=== PATIENT | female | born 1940 | race Caucasian/White ===

== ENCOUNTER 2018-03-18 14:54 | Observation (INO) | payer OTHER ==
[2018-03-18 16:07] LABS: Absolute Lymphocytes (CBC) 0.6 K/uL (0.7-4.9); Absolute Monocytes 1.5 K/uL (0.1-1.3); Absolute Neutrophil 3.4 K/uL (1.8-8.0); Basophils % 0.8 % (0-1.3); Eosinophils % 10.2 % (0-4.4); Hematocrit 27.4 % (36.0-45.0); Lymphocytes % 10.2 % (15.3-44.8); MCH 31.8 pg (27.0-35.0); MCV 92.6 fL (80-100); MPV 8.3 fL (7.6-11.3); Monocytes % 24.3 % (3.3-12.3); RBC Red Blood Cell Count 2.96 M/uL (3.86-4.86)
[2018-03-18 16:17] LABS: Albumin 2.6 g/dL (3.4-5.0); Bilirubin Total 0.2 mg/dL (0.2-1.0); Potassium 4.8 mmol/L (3.5-5.1)
[2018-03-18 16:28] VITALS: BMI 21.6
[2018-03-18] MEDS: NA CHLORIDE 0.9% 500 ML IV ONE (17:03)
[2018-03-18] MEDS: D5 0.9 NS 1,000 ML IV SCH (17:03)
[2018-03-18] MEDS: METRONIDAZOLE 500mg IVPB 500 MG/100 ML BAG IV SCH (17:04)
[2018-03-18] MEDS: FERROUS SULFATE 325 MG TAB PO SCH (20:46)
[2018-03-18] MEDS: CIPROFLOXACIN 400 MG/200 ML IVPB IV SCH (20:46)
[2018-03-18 23:12] VITALS: O2SAT 97
[2018-03-19 00:41] LABS: Urine Appearance CLEAR; Urine Bilirubin NEGATIVE (NEG); Urine Blood NEGATIVE (NEG); Urine Color YELLOW; Urine Glucose NEGATIVE (NEG); Urine Protein NEGATIVE (NEG); Urine Specific Gravity 1.015 (1.005-1.030); Urine Urobilinogen 0.2 mg/dL (0.2-1.0)
[2018-03-19 00:45] LABS: Urine Microscopic Reflex ORDER UMIC
[2018-03-19 01:17] LABS: Urine Bacteria <20 /HPF (<20); Urine Culture Reflex Order REFLEXED; Urine RBC <5 /HPF (NONE SEEN)
[2018-03-19] MEDS: METRONIDAZOLE 500mg IVPB 500 MG/100 ML BAG IV SCH ×3 (01:21→16:47)
[2018-03-19] MEDS: D5 0.9 NS 1,000 ML IV SCH ×3 (06:20→21:00)
[2018-03-19 08:38] LABS: Absolute Monocytes 1.6 K/uL (0.1-1.3); Absolute Neutrophil 3.6 K/uL (1.8-8.0); Basophils % 0.5 % (0-1.3); Eosinophils % 3.4 % (0-4.4); Hematocrit 29.1 % (36.0-45.0); Lymphocytes % 15.2 % (15.3-44.8); MCH 30.9 pg (27.0-35.0); MPV 7.5 fL (7.6-11.3)
[2018-03-19 08:53] LABS: Potassium 4.1 mmol/L (3.5-5.1)
[2018-03-19 09:08] LABS: Blood Morphology Comment NOT SEEN (NOT SEEN); Platelet Estimate INCR; Platelets, Giant NOTED; Urine White Blood Cell Casts OK
[2018-03-19 09:09] LABS: Hypochromasia 1+
[2018-03-19] MEDS: CIPROFLOXACIN 400 MG/200 ML IVPB IV SCH ×2 (10:03→21:00)
[2018-03-19] MEDS: FERROUS SULFATE 325 MG TAB PO SCH ×2 (10:04→21:00)
[2018-03-19] MEDS: NA CHLORIDE 0.9% 500 ML IV ONE (12:58)
[2018-03-19] MEDS ORDERED: NA CHLORIDE 0.9% 500 ML IV SCH (13:00)
[2018-03-19] MEDS ORDERED: D5 0.45 NS 1,000 ML IV SCH (13:00)
[2018-03-19] MEDS ORDERED: D5 0.45 NS 500 ML IV SCH (13:00)
[2018-03-19] MEDS ORDERED: NA CHLORIDE 0.9% 500 ML ONE (13:04)
[2018-03-19] MEDS ORDERED: predniSONE 20 MG TAB PO SCH (15:29)
[2018-03-19] MEDS ORDERED: ACETAMINOPHEN 500 MG TAB PO PRN (16:30)
[2018-03-19] MEDS: ENOXAPARIN 30 MG/0.3 ML SQ SCH (16:47)
[2018-03-19] MEDS ORDERED: ENOXAPARIN 30 MG/0.3 ML SQ SCH ×2 (17:00)
[2018-03-19] MEDS: predniSONE 20 MG TAB PO SCH (17:21)
[2018-03-20] MEDS: METRONIDAZOLE 500mg IVPB 500 MG/100 ML BAG IV SCH ×3 (01:00→17:00)
[2018-03-20 04:43] LABS: Absolute Lymphocytes (CBC) 0.3 K/uL (0.7-4.9); Absolute Monocytes 0.2 K/uL (0.1-1.3); Basophils % 0.3 % (0-1.3); Eosinophils % 0.1 % (0-4.4); Hematocrit 24.4 % (36.0-45.0); Lymphocytes % 13.3 % (15.3-44.8); MCV 90.2 fL (80-100); RBC Red Blood Cell Count 2.71 M/uL (3.86-4.86)
[2018-03-20 05:15] LABS: Potassium 4.4 mmol/L (3.5-5.1)
[2018-03-20 05:42] LABS: Blood Morphology Comment NOT SEEN (NOT SEEN); Platelet Estimate INCR; Platelets, Giant NOTED; Urine White Blood Cell Casts OK
[2018-03-20] MEDS ORDERED: ALENDRONATE 70 MG TAB PO SCH (06:30)
[2018-03-20] MEDS: predniSONE 20 MG TAB PO SCH (08:44)
[2018-03-20] MEDS: FERROUS SULFATE 325 MG TAB PO SCH ×2 (08:45→21:18)
[2018-03-20] MEDS: CIPROFLOXACIN 400 MG/200 ML IVPB IV SCH ×2 (10:55→21:22)
[2018-03-20] MEDS: ENOXAPARIN 30 MG/0.3 ML SQ SCH (18:38)
[2018-03-21] MEDS: METRONIDAZOLE 500mg IVPB 500 MG/100 ML BAG IV SCH (00:33)
[2018-03-21 04:57] LABS: Absolute Monocytes 1.3 K/uL (0.1-1.3); Absolute Neutrophil 5.4 K/uL (1.8-8.0); Basophils % 0.1 % (0-1.3); Hematocrit 27.9 % (36.0-45.0); Lymphocytes % 12.8 % (15.3-44.8); MCH 31.6 pg (27.0-35.0); MCV 91.8 fL (80-100); RBC Red Blood Cell Count 3.04 M/uL (3.86-4.86)
[2018-03-21 05:03] LABS: Potassium 3.8 mmol/L (3.5-5.1)
[2018-03-21] MEDS ORDERED: ALENDRONATE 70 MG TAB PO SCH (06:30)
[2018-03-21 08:47] VITALS: TEMP 97.6
[2018-03-21] MEDS ORDERED: CIPROFLOXACIN HCL 500 MG TAB PO SCH (09:00)
[2018-03-21] MEDS: FERROUS SULFATE 325 MG TAB PO SCH (11:16)
[2018-03-21] MEDS: metroNIDAZOLE 500 MG TABLET PO SCH ×2 (11:16→14:22)
[2018-03-21] MEDS: predniSONE 20 MG TAB PO SCH (11:16)
[2018-03-21 12:18] VITALS: BP 90/50
--- NOTE | 2018-03-21 13:55 | PN ---
Date of Progress Note: 03/20/2018 Subjective: The patient feels considerably better today. Symptoms have improved. Her appetite has improved. I feel that she probably ready for discharge in the a.m. Continue on antibiotics and ster oids at home. Vital signs are stable. HR/MODL Voice ID: [id number] Report ID: [id number]
--- NOTE | 2018-03-21 14:55 | PN ---
Date of Progress Note: 03/21/2018 Subjective: The patient both clinically and symptomatically has improved. Blood pressure is still l ow. However, she has continuously run low even without any flares and was recently seen in the offic e with a low blood pressure. Bolusing her did not seem to make any significant difference. Tolerati ng her food. Discussed with Dr. Porter. We will discharge on Flagyl, Cipro p.o. and decreasing do ses of steroids starting at 20. She was discharged to follow up with Dr. Porter in a few days and me as necessary. HR/MODL Voice ID: [id number] Report ID: [id number]
--- NOTE | 2018-03-24 09:40 | HP ---
Date of Admission: 03/18/2018 Entrance Complaint: Diarrhea, anorexia, general malaise. History Of Present Illness: The patient has had a long history of ulcerative colitis with flare-ups, although past 6 months, she has done relatively well. She is seen in the office today with a gastro enterologist who felt she was quite dehydrated and required IV therapy for a flare-up of her ulcerati ve colitis. She was therefore admitted for more aggressive treatment. Past History: As above. The patient has been on numerous medications including the addition of Humi ra, which has been relatively good until recently. The usual progression is anorexia with dehydratio n and sometimes rectal bleeding, this has necessitated blood transfusions in the past as recently as 1 year. Family History: Noncontributory. Social History: Nonsmoker, nondrinker. The patient does have a long history of progressive dementia . However, she has a good corporate strategy analyst in the presence of her . Physical Examination: General: The patient is a rather cachectic, elderly female, responsive with stable vital signs, but no orientation. Head and Neck: Normocephalic. Pupils equal and reactive to light and accommodation. Fundi negative . Trachea midline. Thyroid not palpable. ENT: Negative. Chest: Clear to P and A. Cardiovascular: PMI midclavicular line. Heart sounds normal. Peripheral pulses are present and equ al bilaterally. Abdomen: Minimal tenderness in paraumbilical area. No guarding, rebound, tenderness, or rigidity. Bowel sounds hyperactive. Extremities: Moderately dehydrated. Good tone and movement. Bilateral reflexes physiologic. Rectal: Deferred. Pelvic: Deferred. Impression: Acute flare of ulcerative colitis, marked dehydration, anemia of chronic disease. Plan: The patient will be admitted and placed on IV fluids, IV antibiotics, and IV steroids dependin g on the responsiveness. This can last anywhere from 24 hours to 3 or 4 days. She was seen during h ospital stay with Gastroenterology as well. HR/MODL Voice ID: [id number]
== END 2018-03-21 14:40 | disposition home health service (06) ==
LOC: 4TH 15:07
PROVIDERS: ADMIT Family Medicine; ATTEND Family Medicine
DX: K51.90 Ulcerative colitis, unspecified, without complications (principal); E86.0 Dehydration; D64.9 Anemia, unspecified
CPT/HCPCS: 36415 ×2; 80048 ×3; 80053; 83605; 85025 ×4; 87040 ×2; 87077; 87086; 87088; 87186; 87205; 87493; G0378; G0379; J0744 ×5; J1650 ×2; 81003; 81015; J7512

== ENCOUNTER 2018-03-26 09:04 | Observation (INO) | payer OTHER ==
[2018-03-26] MEDS ORDERED: NA CHLORIDE 0.9% 1,000 ML ONE (09:19)
[2018-03-26 09:45] LABS: Absolute Lymphocytes (CBC) 0.9 K/uL (0.7-4.9); Absolute Monocytes 0.8 K/uL (0.1-1.3); Absolute Neutrophil 10.9 K/uL (1.8-8.0); Basophils % 0.1 % (0-1.3); Eosinophils % 1.1 % (0-4.4); MCH 30.1 pg (27.0-35.0); MCV 91.4 fL (80-100); MPV 7.4 fL (7.6-11.3); Monocytes % 6.1 % (3.3-12.3); RBC Red Blood Cell Count 3.28 M/uL (3.86-4.86)
[2018-03-26 09:54] LABS: Potassium 4.6 mmol/L (3.5-5.1)
--- NOTE | 2018-03-26 09:57 | RAD REPORT ---
EXAM DESCRIPTION: CT - Head C Spine Cap W Shree - 03/26/2018 9:35 am CLINICAL HISTORY: Head and neck injury with chest and abdominal pain status post fall. Head and neck pain . TECHNIQUE: Computed axial tomography of the head and cervical spine was obtained Computed axial tomography of the chest, abdomen and pelvis was obtained. 100 cc Isovue-300 was given intravenously coronal and sagittal reconstruction was performed. All CT scans are performed using dose optimization technique as appropriate and may include automated exposure control or mA/KV adjustment according to patient size. COMPARISON: September 2017 CT abdomen FINDINGS: An intracranial bleed is not seen. The ventricles are normal in caliber. An extra-axial fl uid collection is not noted. A cervical fracture is not seen. No dislocation is seen. A mediastinal hematoma is not noted. A pleural effusion is not present. A lung contusion is not seen. The liver, spleen, pancreas, adrenals, kidneys and bladder appear unremarkable. A gallstone is seen w ithout gallbladder wall thickening. The wall of the left colon appears mildly thickened. IMPRESSION: 1. No acute intracranial abnormality is seen 2. A cervical fracture is not visualized. If the patient continues have symptoms to suggest intracran ial/spinal cord pathology then MRI would be recommended. 3. No traumatic injury involving the chest, abdomen or pelvis is seen. 4. The wall of the left colon appears mildly thickened which may indicate colitis
[2018-03-26 09:59] LABS: Urine White Blood Cell Casts OK
[2018-03-26 10:00] LABS: Blood Morphology Comment NOT SEEN (NOT SEEN); Platelet Estimate INCR
--- NOTE | 2018-03-26 10:26 | EKG ---
Test Date: 2018-03-26 Test Time: 09:14:43 Field Tech: LORETTA MEASUREMENT RESULTS: Intervals: Rate: 79 MI: 118 QRSD: 80 QT: 344 QTc: 394 Ramsey: P: 22 MI: 118 QRS: 48 T: 65 INTERPRETIVE STATEMENTS: Sinus rhythm with occasional premature ventricular complexes Otherwise normal ECG Compared to ECG 03/12/2017 09:34:36 Sinus tachycardia no longer present Electronically Signed On 03-26-18 10:25:45 CDT by Julio Carrillo
--- NOTE | 2018-03-26 10:36 | RAD REPORT ---
EXAM DESCRIPTION: RAD - Hip Right 2 View - 03/26/2018 9:57 am CLINICAL HISTORY: Right hip pain status post fall FINDINGS: No fracture or dislocation is seen. The bones are osteoporotic. Moderate osteoarthritis involves the right hip. If patient continues ojeda ve symptoms to suggest an occult fracture MRI would be recommended
--- NOTE | 2018-03-26 10:47 | RAD REPORT ---
EXAM DESCRIPTION: RAD - Femur Right - 03/26/2018 9:57 am CLINICAL HISTORY: Right leg pain FINDINGS: No fracture is seen. Bones are osteoporotic
--- NOTE | 2018-03-26 12:26 | ER ---
Nurse's Notes [facility] Name: Sarika Gasca Age: 77 yrs Sex: Female : 1940 Arrival Date: 03/26/2018 Time: 09:08 Bed 8 Private MD: Diagnosis: Other slipping, tripping and stumbling and falls;Superficial injury of head;Laceration without foreign body of scalp;Hypotension;Orthostatic hypotension;Weakness Presentation: 03/26 09:09 Presenting complaint: EMS states: PT was in the kitchen and her heard her fall, la1 when he went in the kitchen she was awake and when he tried to help her up she passed out. BP on scene was 90/40. Transition of care: patient was not received from another setting of care. Onset of symptoms was March 26, 2018. Risk Assessment: Do you want to hurt yourself or someone else? Patient reports no desire to harm self or others. Initial Sepsis Screen: Does the patient meet any 2 criteria? Systolic BP < 90 mmHg. Does the patient have a suspected source of infection? No. Patient's initial sepsis screen is negative. Care prior to arrival: Cervical collar in place. Placed on backboard. 09:09 Method Of Arrival: EMS: [facility] la1 09:09 Acuity: ARIC 2 la1 Historical: - Allergies: 09:11 METRONIDAZOLE; la1 - Home Meds: 13:08 alendronate 70 mg Oral tab 1 tab once wkly [Active]; Delzicol 400 mg Oral cpDR 2 caps 3 sg times per day for ulcerative colitis [Active]; ferrous sulfate 325 mg (65 mg iron) Oral tab daily [Active]; Protonix 40 mg Oral TbEC 1 tab once daily [Active]; Remicade 100 mg intravenous solr for ulcerative colitis [Active]; rivastigmine 9.5 mg/24 hr transdermal pt24 1 patch once daily [Active]; Vancocin 250 mg Oral cap 1 cap every 8 hours [Active]; - PMHx: 09:11 Anemia; Dementia; Osteoporosis; Rectal bleed; ulcerative colitis; la1 - PSHx: 13:08 r wirst surgery; fractured pelvic repair; sg - Immunization history:: Adult Immunizations up to date. - Social history:: Smoking status: unknown. - Ebola Screening: : No symptoms or risks identified at this time. Screenin:30 Abuse screen: Denies threats or abuse. Denies injuries from another. Nutritional sg screening: No deficits noted. Tuberculosis screening: No symptoms or risk factors identified. Never had TB. Fall Risk None identified. Primary Survey: 09:15 A: Airway: patent, Oxygen via nasal cannula at 2 liters per minute. Oral cavity: clear, sg Trachea midline. Breathing/Chest: Respiratory pattern: tachypnea, Respiratory effort: spontaneous, unlabored, Breath sounds: clear, Chest inspection: symmetrical rise and fall of the chest. Circulation: Heart tones present. Pulses: palpable right radial artery, right posterior tibial artery, left radial artery and left posterior tibial artery. Skin temperature: warm. Disability Alert. 09:30 Reassessment Airway Airway Patent Oxygen Nasal cannula Oral cavity Clear sg Breathing/Chest Respiratory pattern Regular Respiratory effort Spontaneous Unlabored Breath sounds Clear Chest inspection Symmetrical Circulation Heart tones Present Pulses Palpable Color Pale Temperature Dry Cool Disability Alert. Secondary Survey: 09:15 HEENT: Head No injury/deformity Face No injury/deformity Eyes: No injury or deformity sg noted. Ears: clear Nose: clear Throat: No injury or deformity noted. is clear. Gastrointestinal: Abdomen is soft, non-distended, Bowel sounds present in all quadrants. Palpation No deficit noted. : No signs and/or symptoms were reported regarding the genitourinary system. Musculoskeletal: Circulation, motion, and sensation intact. Range of motion: intact in all extremities, Swelling absent Reports pain in neck and back and posterior chest and back of head c-collar remains in place, was applied APPEALS OFFICER by EMS. Assessment: 09:12 Reassessment: Pt cleared off of backboard by ERP. la1 09:30 General: Appears uncomfortable, slender, well groomed, well developed, well nourished, sg Behavior is calm, cooperative, appropriate for age. Pain: Complains of pain in back of head, posterior chest, back and neck Quality of pain is described as aching, tender. Neuro: Level of Consciousness is awake, obeys commands, Oriented to person, situation, Speech is normal, Facial symmetry appears normal. Cardiovascular: Heart tones S1 S2 present Capillary refill is sluggish in bilateral fingers toes Chest pain is denied. Respiratory: Airway is patent Respiratory effort is even, unlabored, Respiratory pattern is regular, symmetrical. GI: No signs and/or symptoms were reported involving the gastrointestinal system. Bowel sounds present X 4 quads. hyperactive in right lower quadrant and left lower quadrant. : No signs and/or symptoms were reported regarding the genitourinary system. EENT: No signs and/or symptoms were reported regarding the EENT system. Derm: Skin is intact, is fragile, is thin, Skin is dry, Skin is pale, Skin temperature is cold Bruising that is dark purple, on dorsal aspect of left forearm. Musculoskeletal: Circulation, motion, and sensation intact. Range of motion: intact in all extremities, Swelling absent a c-collar remains in place, was applied APPEALS OFFICER. 09:38 Reassessment: pt in CT at this time, xray ordered as well pt family remains in exam sg room. 10:25 Injury Description: Laceration sustained to occipital area is 0.5 to 2.5 cm long, not sg bleeding, was sustained 30-60 minutes ago. a small amount of bleeding noted at this time. 10:28 Reassessment: CT report noted, notified, pt c-collar removed, pt reports sg feeling better. 11:21 Reassessment: at bedside evaluating pt. sg 11:41 Reassessment: Patient appears in no apparent distress at this time. pt ambulatory sg steady gait, reports feeling dizzy while standing, pt assisted back to bed, BP reading 60/40, notified. 12:40 Reassessment: Patient appears in no apparent distress at this time. Patient and/or sg family updated on plan of care and expected duration. Pain level reassessed. awaiting admission orders at this time Patient states feeling better. Vital Signs: 09:12 BP 79 / 59; Pulse 85; Resp 16; Temp 97.1; Pulse Ox 98% on R/A; la1 10:05 BP 97 / 62; Pulse 77; Resp 20 S; Pulse Ox 100% on 2 lpm NC; Weight 63.5 kg; Pain 6/10; sg 10:52 BP 90 / 59; Pulse 75; Resp 19 S; Pulse Ox 99% on R/A; Pain 3/10; sg 11:35 BP 92 / 61 Sitting; Pulse 78 MON; Resp 19 S; Pulse Ox 100% on R/A; sg 11:40 BP 60 / 40 RA Standing (auto/reg); Pulse 97; Resp 19 S; Pulse Ox 99% on R/A; Pain 3/10; sg 12:30 BP 94 / 60; Pulse 79 MON; Resp 18; Pulse Ox 99% on R/A; sg 14:30 BP 92 / 61; Pulse 77 MON; Resp 20; Temp 97.1; Pulse Ox 99% on R/A; Pain 0/10; sg Luther Coma Score: 09:15 Eye Response: spontaneous(4). Verbal Response: oriented(5). Motor Response: obeys sg commands(6). Total: 15. 10:05 Eye Response: spontaneous(4). Verbal Response: oriented(5). Motor Response: obeys sg commands(6). Total: 15. Trauma Score (Adult): 09:15 Eye Response: spontaneous(1); Verbal Response: oriented(1); Motor Response: obeys sg commands(2); Systolic BP: 76 to 89 mm Hg(3); Respiratory Rate: 10 to 29 per min(4); Roxana Score: 15; Trauma Score: 11 10:05 Eye Response: spontaneous(1); Verbal Response: oriented(1); Motor Response: obeys sg commands(2); Systolic BP: > 89 mm Hg(4); Respiratory Rate: 10 to 29 per min(4); Roxana Score: 15; Trauma Score: 12 ED Course: 09:08 Patient arrived in ED. la1 09:08 Carlito Nieves MD is Attending Physician. kdr 09:11 Triage completed. la1 09:12 Arm band placed on right wrist. EKG completed in triage. Results shown to MD. la1 09:30 Initial lab(s) drawn, by la, sent to lab. T\T\S collected, blood band applied to patient. sg Inserted saline lock: 20 gauge in left antecubital area, using aseptic technique. Blood collected. Oxygen administration via nasal cannula \T\ 2L/min Response to oxygen therapy: pt reports feels better, RR noted to be 22 bpm at this time. 09:[address] via stretcher. [email or web address] 09:33 Shiva Polanco, RN is Primary Nurse. sg 09:36 CT Traumagram (Head C Spine CAP W Con) In Process Unspecified. EDMS 09:57 Hip Right 2 View XRAY In Process Unspecified. EDMS 09:57 Femur Right XRAY In Process Unspecified. EDMS 09:57 X-ray completed. Patient tolerated procedure well. Patient moved back from radiology. jb2 11:00 Wound care: to laceration located on occipital area was cleaned with Hibiclens, dressed sg with 4X4s, Patient tolerated well. awaiting to evaluate pt and determine if closure is needed. 12:15 Inserted saline lock: 22 gauge in right hand, using aseptic technique. IV discontinued, em1 intact, bleeding controlled, No redness/swelling at site. Pressure dressing applied. 12:20 Nathaniel Del Valle MD is Hospitalizing Provider. kdr Administered Medications: 10:05 Drug: NS 0.9% 500 ml Route: IV; Rate: bolus; Site: left antecubital; sg 10:40 Follow up: Response: No adverse reaction; IV Status: Completed infusion; IV Intake: sg 500ml 11:53 Drug: NS 0.9% 500 ml Route: IV; Rate: bolus; Site: left antecubital; sg Intake: 10:40 IV: 500ml; Total: 500ml. sg 14:30 IV: 1000ml (IV Fluid); Total: 1500ml. sg Output: 14:30 Urine: 400ml (Voided); Total: 400ml. sg Outcome: 12:26 Decision to Hospitalize by Provider. kdr 14:46 Patient left the ED. sg Signatures: Dispatcher [employer] EDMS Shiva Polanco, RN Carlito Fermin MD MD kdr Buechter, Jesse jb2 Martinez, Eric em1 Dawood Wall RN RN laGaby Boswell6
--- NOTE | 2018-03-26 12:27 | EDPHYS ---
Physician Documentation [facility] Name: Sarika Gasca Age: 77 yrs Sex: Female : 1940 Arrival Date: 03/26/2018 Time: 09:08 Bed 8 Private MD: ED Physician Carlito Nieves HPI: 03/26 16:51 This 77 yrs old Female presents to ER via EMS with complaints of Fall Injury. kdr 16:51 Details of fall: The patient fell from an upright position, while standing. Onset: The kdr symptoms/episode began/occurred suddenly, just prior to arrival. Associated injuries: The patient sustained injury to the head, contusion, pain, swelling, tenderness, The patient was reported to have been standing in the kitchen at the sink when she apparently collapsed on the floor. This was unwitnessed however the was nearby and came into the kitchen immediately and found her on the floor. He reports that she was awake but when he tried to sit her up, she passed out. EMS was called and she was bought to the ED without further complications.. Severity of symptoms: At their worst the symptoms were mild, in the emergency department the symptoms are unchanged. The patient has not experienced similar symptoms in the past. The patient has not recently seen a physician. Historical: - Allergies: 09:11 METRONIDAZOLE; la1 - Home Meds: 13:08 alendronate 70 mg Oral tab 1 tab once wkly [Active]; Delzicol 400 mg Oral cpDR 2 caps 3 sg times per day for ulcerative colitis [Active]; ferrous sulfate 325 mg (65 mg iron) Oral tab daily [Active]; Protonix 40 mg Oral TbEC 1 tab once daily [Active]; Remicade 100 mg intravenous solr for ulcerative colitis [Active]; rivastigmine 9.5 mg/24 hr transdermal pt24 1 patch once daily [Active]; Vancocin 250 mg Oral cap 1 cap every 8 hours [Active]; - PMHx: 09:11 Anemia; Dementia; Osteoporosis; Rectal bleed; ulcerative colitis; la1 - PSHx: 13:08 r wirst surgery; fractured pelvic repair; sg - Immunization history:: Adult Immunizations up to date. - Social history:: Smoking status: unknown. - Ebola Screening: : No symptoms or risks identified at this time. ROS: 16:51 Constitutional: Negative for fever, chills, and weight loss, Eyes: Negative for injury, kdr pain, redness, and discharge, Neck: Negative for injury, pain, and swelling, Cardiovascular: Negative for chest pain, palpitations, and edema, Respiratory: Negative for shortness of breath, cough, wheezing, and pleuritic chest pain, Abdomen/GI: Negative for abdominal pain, nausea, vomiting, diarrhea, and constipation, Back: Negative for injury and pain, : Negative for injury, bleeding, discharge, and swelling, MS/Extremity: Negative for injury and deformity, Skin: Negative for injury, rash, and discoloration, Psych: Negative for depression, anxiety, suicide ideation, homicidal ideation, and hallucinations, Allergy/Immunology: Negative for hives, rash, and allergies, Endocrine: Negative for neck swelling, polydipsia, polyuria, polyphagia, and marked weight changes, Hematologic/Lymphatic: Negative for swollen nodes, abnormal bleeding, and unusual bruising. 16:51 Neuro: Positive for headache, weakness, Negative for altered mental status, dizziness, gait disturbance, hearing loss, loss of consciousness, numbness, seizure activity, speech changes, syncope, near syncope, tingling, tinnitus, tremor, visual changes, acute changes. 16:51 Neuro: Positive for Contusion to eocciput. kdr Exam: 16:51 Constitutional: This is a well developed, well nourished patient who is awake, alert, kdr and in no acute distress. Head/Face: Normocephalic, atraumatic ecept for 1.5 cm occiputal laceration. Eyes: Pupils equal round and reactive to light, extra-ocular motions intact. Lids and lashes normal. Conjunctiva and sclera are non-icteric and not injected. Cornea within normal limits. Periorbital areas with no swelling, redness, or edema. Neck: Trachea midline, no thyromegaly or masses palpated, and no cervical lymphadenopathy. Supple, full range of motion without nuchal rigidity, or vertebral point tenderness. No Meningismus. Chest/axilla: Normal chest wall appearance and motion. Nontender with no deformity. No lesions are appreciated. Cardiovascular: Regular rate and rhythm with a normal S1 and S2. No gallops, murmurs, or rubs. Normal PMI, no JVD. No pulse deficits. Respiratory: Lungs have equal breath sounds bilaterally, clear to auscultation and percussion. No rales, rhonchi or wheezes noted. No increased work of breathing, no retractions or nasal flaring. Abdomen/GI: Soft, non-tender, with normal bowel sounds. No distension or tympany. No guarding or rebound. No evidence of tenderness throughout. Back: No spinal tenderness. No costovertebral tenderness. Full range of motion. MS/ Extremity: Pulses equal, no cyanosis. Neurovascular intact. Full, normal range of motion. Neuro: Awake and alert, GCS 15, oriented to person, place, time, and situation. Cranial nerves II-XII grossly intact. Motor strength 5/5 in all extremities. Sensory grossly intact. Cerebellar exam normal. Normal gait. Psych: Awake, alert, with orientation to person, place and time. Behavior, mood, and affect are within normal limits. Vital Signs: 09:12 BP 79 / 59; Pulse 85; Resp 16; Temp 97.1; Pulse Ox 98% on R/A; la1 10:05 BP 97 / 62; Pulse 77; Resp 20 S; Pulse Ox 100% on 2 lpm NC; Weight 63.5 kg; Pain 6/10; sg 10:52 BP 90 / 59; Pulse 75; Resp 19 S; Pulse Ox 99% on R/A; Pain 3/10; sg 11:35 BP 92 / 61 Sitting; Pulse 78 MON; Resp 19 S; Pulse Ox 100% on R/A; sg 11:40 BP 60 / 40 RA Standing (auto/reg); Pulse 97; Resp 19 S; Pulse Ox 99% on R/A; Pain 3/10; sg 12:30 BP 94 / 60; Pulse 79 MON; Resp 18; Pulse Ox 99% on R/A; sg 14:30 BP 92 / 61; Pulse 77 MON; Resp 20; Temp 97.1; Pulse Ox 99% on R/A; Pain 0/10; sg Luther Coma Score: 09:15 Eye Response: spontaneous(4). Verbal Response: oriented(5). Motor Response: obeys sg commands(6). Total: 15. 10:05 Eye Response: spontaneous(4). Verbal Response: oriented(5). Motor Response: obeys sg commands(6). Total: 15. Trauma Score (Adult): 09:15 Eye Response: spontaneous(1); Verbal Response: oriented(1); Motor Response: obeys sg commands(2); Systolic BP: 76 to 89 mm Hg(3); Respiratory Rate: 10 to 29 per min(4); Luther Score: 15; Trauma Score: 11 10:05 Eye Response: spontaneous(1); Verbal Response: oriented(1); Motor Response: obeys sg commands(2); Systolic BP: > 89 mm Hg(4); Respiratory Rate: 10 to 29 per min(4); Luther Score: 15; Trauma Score: 12 Laceration: 16:51 Wound Repair of 1.5cm ( 0.6in ) subcutaneous laceration to scalp. Distal kdr neuro/vascular/tendon intact. 16:51 Wound Repair of 1.5cm ( 0.6in ) subcutaneous laceration. Distal neuro/vascular/tendon kdr intact. Anesthesia: None with 1% lidocaine. Wound prep: Moderate cleansing with betadine by configuration technician, Copious irrigation. Skin closed with 1-0 O'Brien using staple gun. Skin closed with 1-0 Larry using staple gun. Dressed with Bacitracin. Patient tolerated well. MDM: 12:26 Patient medically screened. kdr 17:02 Data reviewed: vital signs, nurses notes, lab test result(s), radiologic studies. kdr Counseling: I had a detailed discussion with the patient and/or guardian regarding: the historical points, exam findings, and any diagnostic results supporting the discharge/admit diagnosis, lab results. 03/26 09:10 Order name: Basic Metabolic Panel; Complete Time: 10:36 kdr 03/26 09:10 Order name: CBC with Diff; Complete Time: 10:36 kdr 03/26 09:10 Order name: Creatinine for Radiology; Complete Time: 10:36 kdr 03/26 09:10 Order name: Type And Screen; Complete Time: 10:36 kdr 03/26 09:49 Order name: CBC Smear Scan; Complete Time: 10:36 EDMS 03/26 13:41 Order name: Basic Metabolic Panel EDMS 03/26 09:10 Order name: CT Traumagram (Head C Spine CAP W Con); Complete Time: 10:36 kdr 03/26 13:41 Order name: Basic Metabolic Panel EDMS 03/26 13:41 Order name: CBC with Automated Diff EDMS 03/26 13:41 Order name: CBC with Automated Diff EDMS 03/26 13:41 Order name: Lipase EDSC 03/26 13:41 Order name: Lipase EDSC 03/26 13:41 Order name: Liver (Hepatic) Function EDSC 03/26 13:41 Order name: Liver (Hepatic) Function EDSC 03/26 09:10 Order name: Labs collected and sent; Complete Time: 09:34 kdr 03/26 09:10 Order name: Hip Right 2 View XRAY; Complete Time: 11:48 kdr 03/26 09:10 Order name: Femur Right XRAY; Complete Time: 11:48 kdr 03/26 09:34 Order name: IV; Complete Time: 09:34 sg 03/26 09:52 Order name: EKG Electrocardiogram; Complete Time: 11:02 EDSC 03/26 13:15 Order name: Diet Heart Healthy; Complete Time: 13:16 sg 03/26 13:41 Order name: Regular EDMS Administered Medications: 10:05 Drug: NS 0.9% 500 ml Route: IV; Rate: bolus; Site: left antecubital; sg 10:40 Follow up: Response: No adverse reaction; IV Status: Completed infusion; IV Intake: sg 500ml 11:53 Drug: NS 0.9% 500 ml Route: IV; Rate: bolus; Site: left antecubital; sg Disposition: 03/26/18 12:26 Hospitalization ordered by Nathaniel Del Valle for Observation. Preliminary diagnosis are Other slipping, tripping and stumbling and falls, Superficial injury of head, Laceration without foreign body of scalp, Hypotension, Orthostatic hypotension, Weakness. - Bed requested for Telemetry/MedSurg (observation). - Status is Observation. sg - Condition is Fair. - Problem is new. - Symptoms have improved. UTI on Admission? No Signatures: Dispatcher [employer] EDMS MallyAnnette bonilla bd Shiva Polanco RN RN sg Carlito Nieves MD MD [facility] Dawood Wall RN RN la1 Corrections: (The following items were deleted from the chart) 14:07 12:26 Hospitalization Ordered by Nathaniel Del Valle MD for Observation. Preliminary bd diagnosis is Other slipping, tripping and stumbling and falls; Superficial injury of head; Laceration without foreign body of scalp; Hypotension; Orthostatic hypotension; Weakness. Bed requested for Telemetry/MedSurg (observation). Status is Observation. Condition is Fair. Problem is new. Symptoms have improved. UTI on Admission? No. kdr 14:46 14:07 03/26/2018 12:26 Hospitalization Ordered by Nathaniel Del Valle MD for Observation. sg Preliminary diagnosis is Other slipping, tripping and stumbling and falls; Superficial injury of head; Laceration without foreign body of scalp; Hypotension; Orthostatic hypotension; Weakness. Bed requested for Telemetry/MedSurg (observation). Status is Observation. Condition is Fair. Problem is new. Symptoms have improved. UTI on Admission? No. bd 17:04 16:51 Wound Repair of 1.5cm ( 0.6in ) laceration. Anesthesia: None with 1% lidocaine. kdr Wound prep: Moderate cleansing with betadine by configuration technician, Copious irrigation. Skin closed with 1-0 Adhesive skin closure using simple sutures and sterile technique. Dressed with Bacitracin. Patient tolerated well. kdr
[2018-03-26] MEDS ORDERED: ACETAMINOPHEN 500 MG TAB PO PRN (13:36)
[2018-03-26] MEDS ORDERED: ONDANSETRON 4 MG/2 ML VIAL IV PRN (13:36)
[2018-03-26] MEDS ORDERED: D5 0.45 NS 1,000 ML IV SCH (14:00)
[2018-03-26 15:39] VITALS: BMI 23.8
[2018-03-26] MEDS ORDERED: ADALIMUMAB 40 MG IM SCH (16:15)
[2018-03-26] MEDS: NA CHLORIDE 0.9% 1,000 ML IV SCH (16:20)
[2018-03-26] MEDS: CIPROFLOXACIN HCL 500 MG TAB PO SCH (21:57)
[2018-03-27 01:22] VITALS: O2SAT 95
[2018-03-27] MEDS: NA CHLORIDE 0.9% 1,000 ML IV SCH (05:07)
[2018-03-27 05:52] LABS: Absolute Lymphocytes (CBC) 0.9 K/uL (0.7-4.9); Absolute Monocytes 1.2 K/uL (0.1-1.3); Absolute Neutrophil 5.9 K/uL (1.8-8.0); Basophils % 0.2 % (0-1.3); Eosinophils % 0.8 % (0-4.4); Hematocrit 26.1 % (36.0-45.0); Lymphocytes % 11.3 % (15.3-44.8); MCH 30.8 pg (27.0-35.0); MCV 91.1 fL (80-100); MPV 7.5 fL (7.6-11.3); Monocytes % 14.8 % (3.3-12.3); RBC Red Blood Cell Count 2.86 M/uL (3.86-4.86)
[2018-03-27 05:59] LABS: Albumin 2.2 g/dL (3.4-5.0); Bilirubin Direct 0.1 mg/dL (0-0.2); Bilirubin Total 0.2 mg/dL (0.2-1.0); Potassium 4.1 mmol/L (3.5-5.1); Protein, Total 5.6 g/dL (6.4-8.2)
[2018-03-27] MEDS: CIPROFLOXACIN HCL 500 MG TAB PO SCH (09:22)
[2018-03-27 14:50] VITALS: BP 97/60; TEMP 98.2
--- NOTE | 2018-03-28 00:58 | SS ---
Date of Discharge: 03/27/2018 The patient presented to the emergency room after an episode of where she apparently had fallen accor ding to her as the patient is basically noncommunicative because of her mental deterioration over the past few years. He came into the kitchen. She had been washing dishes, which is a little u nusual for her. Shortly after getting up he found her on the floor and he brought her to the emergen cy room. There were no overt signs or symptoms of seizure and unlike other episodes where she has ojeda d some near-syncope episode. This time she was actually on the floor and sustained a small laceratio n of her scalp. She was about to be discharged from the ER, and when they noticed her blood pressure was quite low, they decided to keep her. Blood pressure problems have been an issue since past few years and felt to be stable for her and in fact over the last few times in the office when she would walk and her blood pressure would be in the 90s over the 60s. Orthostatic hypotensive studies have b een done many times including a week ago when she was in the hospital for an acute exacerbation of he r ulcerative colitis, to be negative. However, this episode sounds like a vasovagal synco pe. She was admitted, given IV fluids and interestingly enough her blood pressure remained within no rmal limits until the second reading today when it was 90/60. Before instituting more active medicat ion for elevated blood pressure, I felt that she should be monitored at home, and he was instructed t o do a blood pressure 3 times a day and is to follow up with her in 5 days and decide whether to put her on midodrine. She was discharged to continue on her Cipro, Flagyl, and 10 mg of prednisone under good control though her appetite has been returning. She will be followed up with me in 5 days in regard to her syncope and follow up with GI on a p.r.n. basis. Final Diagnoses: Syncope, vasovagal, postural hypotension, ulcerative colitis, active treatment, lac eration of skull by history. HR/MODL Voice ID: [id number] Report ID: [id number]
[2018-04-02] MEDS ORDERED: ALENDRONATE 70 MG TAB PO SCH (09:00)
== END 2018-03-27 13:25 | disposition home or self-care (01) ==
LOC: ER 09:04 → INTOOBSV 13:35 → ERHOLD 13:35 → 2ND 14:30
PROVIDERS: ADMIT Family Medicine; ATTEND Family Medicine
PROC: 0JQ00ZZ Repair Scalp Subcutaneous Tissue and Fascia, Open Approach (ICD-10-PCS; principal; 2018-03-26)
DX: R55 Syncope and collapse (principal); I95.1 Orthostatic hypotension; K51.90 Ulcerative colitis, unspecified, without complications; S01.01XA Laceration without foreign body of scalp, initial encounter; W18.39XA Other fall on same level, initial encounter; Y92.000 Kitchen of unspecified non-institutional (private) residence as the place of occurrence of the external cause
CPT/HCPCS: 12001; 36415; 70450; 71260; 72125; 73502; 73552; 74177; 80048 ×2; 80076; 83690; 85025 ×2; 86850; 86900; 86901; 87493; 93005; 96360; 99285; G0378 ×2; J7030 ×3; Q9967

== ENCOUNTER 2018-06-30 08:16 | Observation (INO) | payer OTHER ==
[2018-06-30] MEDS ORDERED: METHYLPREDNISOLONE 125 MG INJ ONE (08:56)
[2018-06-30] MEDS ORDERED: NA CHLORIDE 0.9% 1,000 ML ONE (08:56)
[2018-06-30 09:00] LABS: Absolute Lymphocytes (CBC) 0.5 K/uL (0.7-4.9); Absolute Monocytes 1.3 K/uL (0.1-1.3); Absolute Neutrophil 9.6 K/uL (1.8-8.0); Basophils % 0.5 % (0-1.3); Eosinophils % 2.3 % (0-4.4); Hematocrit 35.2 % (36.0-45.0); Lymphocytes % 4.5 % (15.3-44.8); MPV 7.3 fL (7.6-11.3); Monocytes % 11.2 % (3.3-12.3); RBC Red Blood Cell Count 3.83 M/uL (3.86-4.86)
[2018-06-30 09:27] LABS: ALT/SGPT 13 U/L (12-78); AST/SGOT 11 U/L (15-37); Albumin 2.4 g/dL (3.4-5.0); Alkaline Phosphatase 75 U/L (45-117); BUN Blood Urea Nitrogen 22 mg/dL (7-18); Bicarbonate 27 mmol/L (21-32); Bilirubin Direct < 0.1 mg/dL (0-0.2); Bilirubin Total 0.3 mg/dL (0.2-1.0); Glucose Level 89 mg/dL (74-106); Lipase 67 U/L (73-393); Potassium 4.1 mmol/L (3.5-5.1); Protein, Total 6.7 g/dL (6.4-8.2); Sodium Level 139 mmol/L (136-145)
--- NOTE | 2018-06-30 09:52 | ER ---
Nurse's Notes [facility] Name: Sarika Gasca Age: 77 yrs Sex: Female : 1940 Arrival Date: 06/30/2018 Time: 08:18 Bed 6 Private MD: Nathaniel Del Valle Diagnosis: Ulcerative colitis;Dehydration Presentation: 06/30 08:25 Presenting complaint: states: she fainted this morning. She has been very week ca1 after having uncontrolled diarrhea for several days now. Her stool is bloody and she has stomach cramps. 08:25 Transition of care: patient was not received from another setting of care. Onset of ca1 symptoms was June 30, 2018. Risk Assessment: Do you want to hurt yourself or someone else? Patient reports no desire to harm self or others. Initial Sepsis Screen: Does the patient meet any 2 criteria? HR > 90 bpm. Does the patient have a suspected source of infection? No. Patient's initial sepsis screen is negative. Care prior to arrival: None. 08:25 Method Of Arrival: Wheelchair ca1 08:25 Acuity: ARIC 3 ca1 Historical: - Allergies: 08:40 METRONIDAZOLE; ca1 - Home Meds: 08:45 Prednisone 25mg Oral 1 tab once daily [Active]; Peggy every 2 weeks [Active]; ca1 - PMHx: 08:40 Anemia; Dementia; Osteoporosis; Rectal bleed; ulcerative colitis; ca1 - PSHx: 08:40 r wirst surgery; fractured pelvic repair; ca1 - Immunization history:: Adult Immunizations up to date. - Social history:: Patient/guardian denies using alcohol, street drugs, The patient lives with family, Smoking status: Patient/guardian denies using tobacco. - Family history:: not pertinent. - Ebola Screening: : No symptoms or risks identified at this time. - Hospitalizations: : No recent hospitalization is reported. Screenin:40 Abuse screen: Denies threats or abuse. Denies injuries from another. Nutritional ca1 screening: No deficits noted. Tuberculosis screening: No symptoms or risk factors identified. Fall Risk Secondary diagnosis (15 points) dementia, Assessment: 08:40 General: Appears in no apparent distress. uncomfortable, ill, Behavior is calm, ca1 cooperative, appropriate for age. Pain: Complains of pain in abdomen Pain does not radiate. Pain currently is 5 out of 10 on a pain scale. Quality of pain is described as crampy. Neuro: Level of Consciousness is awake, alert, obeys commands, Oriented to person, place, situation. Neuro:. Cardiovascular: Heart tones S1 S2 present Capillary refill < 3 seconds Patient's skin is warm and dry. Respiratory: Airway is patent Trachea midline Respiratory effort is even, unlabored, Respiratory pattern is regular, symmetrical, Breath sounds are clear bilaterally. GI: Abdomen is flat, non-distended, Bowel sounds present X 4 quads. Abd is soft Abdomen is tender to palpation Parent/caregiver reports the patient having cramping, diarrhea. : No signs and/or symptoms were reported regarding the genitourinary system. EENT: No signs and/or symptoms were reported regarding the EENT system. Derm: Skin is intact, Skin is pink, warm \T\ dry. Musculoskeletal: Circulation, motion, and sensation intact. 09:00 Reassessment: Pt finished CT oral contrast, CT notified. . ss 09:37 Reassessment: Patient appears in no apparent distress at this time. Patient and/or ca1 family updated on plan of care and expected duration. Pain level reassessed. Patient is alert, oriented x 3, equal unlabored respirations, skin warm/dry/pink. 10:25 Reassessment: Patient appears in no apparent distress at this time. Patient is alert, ca1 oriented x 3, equal unlabored respirations, skin warm/dry/pink. Patient to CT scan. 11:30 Reassessment: Patient appears in no apparent distress at this time. Patient and/or ca1 family updated on plan of care and expected duration. Pain level reassessed. Patient is alert, oriented x 3, equal unlabored respirations, skin warm/dry/pink. 12:00 Reassessment: Called report to 2nd floor. RN will call back. ca1 12:20 Reassessment: Pt on bedside commode to defecate. ca1 Vital Signs: 08:25 BP 136 / 67; Pulse 102; Resp 21; Temp 97.6; Pulse Ox 98% on R/A; Weight 61.23 kg; ca1 Height 5 ft. 7 in. (170.18 cm); Pain 5/10; 09:03 BP 99 / 70; Pulse 103; Resp 18; Pulse Ox 97% on R/A; ca1 09:37 BP 91 / 53; Pulse 85; Resp 19; Pulse Ox 95% on R/A; ca1 10:25 BP 92 / 57; Pulse 85; Resp 19; Pulse Ox 96% on R/A; ca1 12:00 BP 108 / 71; Pulse 98; Resp 18; Pulse Ox 97% on R/A; ca1 08:25 Body Mass Index 21.14 (61.23 kg, 170.18 cm) ca1 ED Course: 08:18 Patient arrived in ED. dl4 08:18 Nathaniel Del Valle MD is Private Physician. dl4 08:24 Paula Padilla, BRYN is Primary Nurse. ca1 08:24 Virginia Burks MD is Attending Physician. ma2 08:25 Arm band placed on right wrist. ca1 08:36 Triage completed. ca1 08:40 Patient has correct armband on for positive identification. Placed in gown. Bed in low ca1 position. Call light in reach. Side rails up X2. Pulse ox on. NIBP on. Warm blanket given. 08:43 Inserted saline lock: 20 gauge in left antecubital area, using aseptic technique. ca1 ,using aseptic technique. by OZ Roa Tech Blood collected. 08:43 Initial lab(s) drawn, by ED staff, sent to lab. ca1 09:50 Nathaniel Del Valle MD is Hospitalizing Provider. ma2 10:35 No provider procedures requiring assistance completed. Patient admitted, IV remains in ca1 place. 10:39 CT completed. Patient tolerated procedure well. Patient moved to CT via stretcher. vr Patient moved back from CT. Administered Medications: 08:45 Drug: NS 0.9% 1000 ml Route: IV; Rate: 1 bolus; Site: right antecubital; ca1 10:34 Follow up: Response: No adverse reaction; IV Status: Completed infusion ca1 08:46 Drug: MethylPrednisoLONE 125 mg Route: IVP; Site: right antecubital; ca1 10:34 Follow up: Response: No adverse reaction ca1 Outcome: 09:51 Decision to Hospitalize by Provider. ma2 12:20 Admitted to Med/surg accompanied by chanda, family with patient, via stretcher, room 223, ca1 with chart, Report called to Deshaun Patel RN 12:20 Condition: stable 12:20 Instructed on the need for admit. 12:48 Patient left the ED. ca1 Signatures: Smirch, Orquidea, RN RN ss Aniyah Daiz Mohammad, MD MD ma2 Ezra Bartlett dl4 Paula Padilla RN RN ca1 Corrections: (The following items were deleted from the chart) 08:42 08:40 BP 136 / 67; Pulse 102bpm; Resp 21bpm; Pulse Ox 98% RA; Temp 97.6F; 61.23 kg; ca1 Height 5 ft. 7 in.; BMI: 21.1; Pain 5/10; ca1
[2018-06-30] MEDS ORDERED: ACETAMINOPHEN 500 MG TAB PO PRN (09:53)
[2018-06-30] MEDS ORDERED: ONDANSETRON 4 MG/2 ML VIAL IV PRN (09:53)
--- NOTE | 2018-06-30 09:53 | EDPHYS ---
Physician Documentation [facility] Name: Sarika Gasca Age: 77 yrs Sex: Female : 1940 Arrival Date: 06/30/2018 Time: 08:18 Bed 6 Private MD: Nathaniel Del Valle ED Physician Virginia Burks HPI: 06/30 08:29 This 77 yrs old Female presents to ER via Unassigned with complaints of ma2 Bloody Stools, Weakness. 08:29 Onset: The symptoms/episode began/occurred gradually, 1 month(s) ago. Associated signs ma2 and symptoms: Pertinent positives: bloody stool, Pertinent negatives: chills, headache, nausea, seizure, near-syncope. Severity of symptoms: At their worst the symptoms were moderate in the emergency department the symptoms are unchanged. Current symptoms: diarrhea. The patient has experienced similar episodes in the past. Historical: - Allergies: 08:40 METRONIDAZOLE; ca1 - Home Meds: 08:45 Prednisone 25mg Oral 1 tab once daily [Active]; Peggy every 2 weeks [Active]; ca1 - PMHx: 08:40 Anemia; Dementia; Osteoporosis; Rectal bleed; ulcerative colitis; ca1 - PSHx: 08:40 r wirst surgery; fractured pelvic repair; ca1 - Immunization history:: Adult Immunizations up to date. - Social history:: Patient/guardian denies using alcohol, street drugs, The patient lives with family, Smoking status: Patient/guardian denies using tobacco. - Family history:: not pertinent. - Ebola Screening: : No symptoms or risks identified at this time. - Hospitalizations: : No recent hospitalization is reported. ROS: 08:29 Constitutional: Negative for fever, chills, and weight loss, Cardiovascular: Negative ma2 for chest pain, palpitations, and edema, Respiratory: Negative for shortness of breath, cough, wheezing, and pleuritic chest pain. 08:29 Abdomen/GI: Positive for diarrhea, Negative for rectal pain, rectal bleeding, bowel incontinence. 08:29 All other systems are negative. Exam: 08:29 Constitutional: This is a well developed, well nourished patient who is awake, alert, ma2 and in no acute distress. Chest/axilla: Normal chest wall appearance and motion. Nontender with no deformity. No lesions are appreciated. Cardiovascular: Regular rate and rhythm with a normal S1 and S2. No gallops, murmurs, or rubs. Normal PMI, no JVD. No pulse deficits. Respiratory: Lungs have equal breath sounds bilaterally, clear to auscultation and percussion. No rales, rhonchi or wheezes noted. No increased work of breathing, no retractions or nasal flaring. Abdomen/GI: Soft, non-tender, with normal bowel sounds. No distension or tympany. No guarding or rebound. No evidence of tenderness throughout. MS/ Extremity: Pulses equal, no cyanosis. Neurovascular intact. Full, normal range of motion. Neuro: Awake and alert, GCS 15, oriented to person, place, time, and situation. Cranial nerves II-XII grossly intact. Motor strength 5/5 in all extremities. Sensory grossly intact. Cerebellar exam normal. Normal gait. Vital Signs: 08:25 BP 136 / 67; Pulse 102; Resp 21; Temp 97.6; Pulse Ox 98% on R/A; Weight 61.23 kg; ca1 Height 5 ft. 7 in. (170.18 cm); Pain 5/10; 09:03 BP 99 / 70; Pulse 103; Resp 18; Pulse Ox 97% on R/A; ca1 09:37 BP 91 / 53; Pulse 85; Resp 19; Pulse Ox 95% on R/A; ca1 10:25 BP 92 / 57; Pulse 85; Resp 19; Pulse Ox 96% on R/A; ca1 12:00 BP 108 / 71; Pulse 98; Resp 18; Pulse Ox 97% on R/A; ca1 08:25 Body Mass Index 21.14 (61.23 kg, 170.18 cm) ca1 MDM: 08:24 Patient medically screened. ma2 08:29 Data reviewed: vital signs, nurses notes, lab test result(s). ma2 09:46 Data reviewed: will admit for dehydration and JOSEPH risk . Counseling: I had a detailed [facility] discussion with the patient and/or guardian regarding: the historical points, exam findings, and any diagnostic results supporting the discharge/admit diagnosis, the presence of at least one elevated blood pressure reading (>120/80) during this emergency department visit, the need for further work-up and treatment in the hospital. Response to treatment: the patient's symptoms have markedly improved after treatment. ED course: . 09:50 ED course: discussed with dr. gary dominguez and dr. de león . wy2 06/30 08:29 Order name: Basic Metabolic Panel; Complete Time: 09:44 wy2 06/30 08:29 Order name: CBC with Diff; Complete Time: 09:28 wy2 06/30 08:29 Order name: Creatinine for Radiology; Complete Time: 09:28 wy2 06/30 08:29 Order name: Hepatic Function; Complete Time: 09:44 wy2 06/30 08:29 Order name: Lipase; Complete Time: 09:44 wy2 06/30 09:56 Order name: Basic Metabolic Panel EDMS 06/30 08:45 Order name: CT Abd/Pelvis - W/Contrast ma2 06/30 09:56 Order name: Basic Metabolic Panel EDMS 06/30 09:56 Order name: CBC with Automated Diff EDMS 06/30 09:56 Order name: CBC with Automated Diff EDMS 06/30 09:56 Order name: Lipase EDMS 06/30 09:56 Order name: Lipase EDMS 06/30 10:56 Order name: CT EDMS 06/30 08:29 Order name: IV Saline Lock; Complete Time: 08:56 ma2 06/30 08:29 Order name: Labs collected and sent; Complete Time: 08:56 wy2 06/30 09:56 Order name: NPO EDMS 06/30 10:06 Order name: CONS Pharmacy Consult EDMS 06/30 10:06 Order name: CONS Physician Consult EDMN Administered Medications: 08:45 Drug: NS 0.9% 1000 ml Route: IV; Rate: 1 bolus; Site: right antecubital; ca1 10:34 Follow up: Response: No adverse reaction; IV Status: Completed infusion ca1 08:46 Drug: MethylPrednisoLONE 125 mg Route: IVP; Site: right antecubital; ca1 10:34 Follow up: Response: No adverse reaction ca1 Disposition: 06/30/18 09:51 Hospitalization ordered by Nathaniel Del Valle for Observation. Preliminary diagnosis are Ulcerative colitis, Dehydration. - Bed requested for Telemetry/MedSurg (observation). - Status is Observation. ca1 - Condition is Stable. - Problem is new. - Symptoms are unchanged. UTI on Admission? No Signatures: Dispatcher [employer] EDMN Annette Story Mohammad, MD MD ma2 Paula Padilla RN RN ca1 Corrections: (The following items were deleted from the chart) 10:57 09:51 Hospitalization Ordered by Nathaniel Del Valle MD for Observation. Preliminary bd diagnosis is Ulcerative colitis; Dehydration. Bed requested for Telemetry/MedSurg (observation). Status is Observation. Condition is Stable. Problem is new. Symptoms are unchanged. UTI on Admission? No. ma2 12:48 10:57 06/30/2018 09:51 Hospitalization Ordered by Nathaniel Del Valle MD for Observation. ca1 Preliminary diagnosis is Ulcerative colitis; Dehydration. Bed requested for Telemetry/MedSurg (observation). Status is Observation. Condition is Stable. Problem is new. Symptoms are unchanged. UTI on Admission? No. bd
[2018-06-30] MEDS: D5 0.45 NS 1,000 ML IV SCH ×2 (10:00→16:01)
--- NOTE | 2018-06-30 10:55 | RAD REPORT ---
EXAM DESCRIPTION: CT - Abdomen Pelvis W Contrast - 06/30/2018 10:43 am CLINICAL HISTORY: Abdominal pain, diarrhea, bloody stools, history of ulcerative colitis with prior pelvic fracture repair COMPARISON: CT study September 2017, CT trauma study March 2018 TECHNIQUE: Biphasic, helical CT imaging of the abdomen and pelvis was performed following 100 ml non -ionic IV contrast. Oral contrast was given. All CT scans are performed using dose optimization technique as appropriate and may include automated exposure control or mA/KV adjustment according to patient size. FINDINGS: Atelectasis and scarring changes are present in each lung base. Trace amount of pericardia l effusion noted along the inferior margin. This is similar to March imaging. Liver size is normal. Patient has several small round low-density areas scattered throughout the live r. These are not clearly different from comparison. Largest is 1.7 cm in the midline anterior subcaps ular left lobe. The other is are under 1 centimeter in size. Along the posterior capsular margin midl ine left lobe liver there is a 2.8 centimeter rim calcified cystic mass. This date dx back to at leas t 2015 and is not seen as significant. Spleen and pancreas show no acute findings. Patient has a larg e densely calcified gallstone within the gallbladder. No biliary tree dilatation. Symmetric renal function is seen with no hydronephrosis or suspicious renal mass. No pyelonephritis o r acute parenchymal process. No bladder abnormalities. Minimal adrenal gland fullness is stable. Smal l uterus is seen. Ovaries are atrophic. No adnexal mass identified. Stomach is mostly decompressed. This accentuates gastric wall thickness. CT imaging of the stomach is limited on this study. No acute small bowel finding. Oral CT contrast has reached the mid sigmoid co adriel. Patient has circumferential wall thickening and edema of the colon consistent with a pancolitis. This matches patient history of ulcerative colitis. No free air, free fluid, pneumatosis or additional areas of inflammatory stranding. There is trace am ount of edema in the fat adjacent to the rectum and distal sigmoid colon. No hernia, mass or bulky l ymphadenopathy. Prominent disc and bony degenerative changes are present. No acute bone finding or pathologic process seen. IMPRESSION: Mild to moderate pancolitis pattern consistent with the patient's history of ulcerative colitis. No colon mass seen. There is no obstruction, free air or other surgically emergent finding. Gastric a ssessment is limited. Additional nonacute findings are detailed in the body of the report.
[2018-06-30 17:07] VITALS: BMI 21.1
[2018-06-30] MEDS: METRONIDAZOLE 500mg IVPB 500 MG/100 ML BAG IV SCH (18:32)
[2018-06-30] MEDS: METHYLPREDNISOLONE 40 MG INJ IV SCH (22:23)
[2018-06-30] MEDS: CIPROFLOXACIN 400mg IV 400 MG/200 ML BAG IV SCH (22:23)
[2018-07-01] MEDS: METRONIDAZOLE 500mg IVPB 500 MG/100 ML BAG IV SCH ×3 (01:02→18:07)
[2018-07-01] MEDS: D5 0.45 NS 1,000 ML IV SCH ×3 (01:02→18:08)
[2018-07-01 06:23] LABS: Absolute Lymphocytes (CBC) 0.4 K/uL (0.7-4.9); Absolute Monocytes 0.4 K/uL (0.1-1.3); Absolute Neutrophil 4.6 K/uL (1.8-8.0); Basophils % 0.1 % (0-1.3); Hematocrit 29.1 % (36.0-45.0); Lymphocytes % 6.9 % (15.3-44.8); MPV 7.4 fL (7.6-11.3); Monocytes % 6.8 % (3.3-12.3); RBC Red Blood Cell Count 3.18 M/uL (3.86-4.86)
[2018-07-01 06:42] LABS: Potassium 4.2 mmol/L (3.5-5.1)
[2018-07-01 08:38] LABS: Blood Morphology Comment NOT SEEN (NOT SEEN); Platelet Estimate INCR; Toxic Granulation 1+; Urine White Blood Cell Casts OK
[2018-07-01] MEDS: CIPROFLOXACIN 400mg IV 400 MG/200 ML BAG IV SCH ×2 (10:39→20:11)
[2018-07-01] MEDS: METHYLPREDNISOLONE 40 MG INJ IV SCH ×2 (10:39→20:11)
--- NOTE | 2018-07-01 14:13 | PN ---
Date of Progress Note: 06/30/2018 The patient is more alert now according to her after she received the IV fluids. She was see n by Gastroenterology who restarted her usual medication for her colitis and there is no significant change in her mental status. However, states as a combination man he is having increasing difficul ty as she has become rectal incontinent and is requesting for placement. [employer] will be con sulted for this. HR/MODL Voice ID: [id number] Report ID: [id number]
[2018-07-02] MEDS: METRONIDAZOLE 500mg IVPB 500 MG/100 ML BAG IV SCH ×3 (00:48→16:49)
[2018-07-02] MEDS: D5 0.45 NS 1,000 ML IV SCH ×3 (02:00→18:38)
[2018-07-02] MEDS: CIPROFLOXACIN 400mg IV 400 MG/200 ML BAG IV SCH ×2 (09:29→20:15)
[2018-07-02] MEDS: METHYLPREDNISOLONE 40 MG INJ IV SCH ×2 (09:30→20:15)
[2018-07-02] MEDS ORDERED: LORAZEPAM 1 MG TABLET PO PRN (20:00)
[2018-07-03] MEDS: METRONIDAZOLE 500mg IVPB 500 MG/100 ML BAG IV SCH ×2 (01:00→08:02)
[2018-07-03] MEDS: D5 0.45 NS 1,000 ML IV SCH ×2 (05:29→10:00)
[2018-07-03] MEDS: METHYLPREDNISOLONE 40 MG INJ IV SCH (08:01)
[2018-07-03] MEDS: CIPROFLOXACIN 400mg IV 400 MG/200 ML BAG IV SCH (09:09)
[2018-07-03 09:28] VITALS: O2SAT 95
[2018-07-03 11:52] VITALS: BP 115/68; TEMP 97.5
--- NOTE | 2018-07-03 16:36 | HP ---
Date of Admission: 06/30/2018 Entrance Complaint: Generalized weakness, near-syncope and/or syncope, episode of bloody stools. History Of Present Illness: The patient has had a long history of admissions due to her diagnosis of ulcerative colitis, which often presents with fatigue and bloody stools. She has been under the car e of historic sites registrar who has started recently some medication in the form of Humira and she has al so been on prednisone variable doses and Flagyl. During the past few years, she has had increasing d ementia, and according to her as of late she has been having rectal incontinence. She does have a hi story of hypotension, so difficult to evaluate her hydration in this manner. However, her activity l tarael seems to coincide with her degree of hydration. Social History: Nonsmoker and nondrinker. Family History: Noncontributory. Physical Examination: General: Patient is a thin elderly, obviously disoriented female. Vital Signs: Low blood pressure 97/54, otherwise normal vital signs. Head and Neck: Normocephalic. Pupils equal and reactive to light and accommodation. Fundi negative . Trachea midline. Thyroid not palpable. ENT: Negative. Chest: Clear to P and A. Cardiovascular: PMI in midclavicular line. Heart: Sounds normal. Peripheral pulses present and equal bilaterally. Abdomen: Tenderness in the paraumbilical and lower abdominal area. No guarding, rebound, tenderness or rigidity. Bowel sounds hyperactive. Extremities: Moderately dehydrated. Good tone and movement bilaterally. Reflexes physiologic. Rectal: Deferred. Pelvic: Deferred. Impression: Acute exacerbation of ulcerative colitis, marked dehydration, near syncope. Plan: Patient will be admitted, placed on IV fluids as well as IV steroids, IV Flagyl with [place] wh ich she usually responds quite well. She will be seen by her historic sites registrar. HR/MODL Voice ID: [id number]
--- NOTE | 2018-07-03 16:36 | PN ---
Date of Progress Note: 07/02/2018 The patient has improved clinically and symptomatically. Her mental status has minimal change as far as her dementia is concerned but she is much more alert, talkative, and physically able to walk. He r hydration has improved markedly. Her diet will be increased and if it is tolerated she probably ca n be discharged. Her did talk to me about possibly having placed for longterm care as he ojeda s marked difficulty with her care, especially in regard to her rectal incontinence. HR/MODL Voice ID: [id number] Report ID: [id number]
--- NOTE | 2018-07-03 18:03 | PN ---
Date of Progress Note: 07/03/2018 The patient is much better clinically, symptomatically and feels well enough to be discharged to [facility] on usual home medications, steroid treatments and antibiotics. Follow up with the gastroenterol ogist next week and as well as myself. Hydration has markedly improved. HR/MODL Voice ID: [id number] Report ID: [id number]
== END 2018-07-03 15:21 | disposition home or self-care (01) ==
LOC: ER 08:16 → ERHOLD 09:56 → 2ND 12:27
PROVIDERS: ADMIT Family Medicine; ATTEND Family Medicine
DX: K51.90 Ulcerative colitis, unspecified, without complications (principal); E86.0 Dehydration; R55 Syncope and collapse; F03.90 Unspecified dementia, unspecified severity, without behavioral disturbance, psychotic disturbance, mood disturbance, and anxiety
CPT/HCPCS: 36415; 74177; 80048 ×2; 80076; 83690 ×2; 85025 ×2; 87493; 96361; 96374; 99285; G0378 ×2; J0744 ×6; J2920 ×6; J2930; J7030; Q9967

== ENCOUNTER 2019-04-28 09:25 | Emergency (ER) | payer OTHER, MEDICAID ==
--- OUTSIDE RECORDS SUMMARY | 2019-04-28 09:27 | XMS REPORT ---
:1940 [facility] [address] [place] [address] Dr. Dotson [address] [place] [id number] Care Team Providers Name Role Phone Unavailable Unavailable Unavailable Problems This patient has no known problems. Allergies, Adverse Reactions, Alerts This patient has no known allergies or adverse reactions. Medications This patient has no known medications.
[2019-04-28 10:12] LABS: Absolute Lymphocytes (CBC) 0.7 K/uL (0.7-4.9); Basophils % 0.4 % (0-1.3); Hematocrit 38.2 % (36.0-45.0); MPV 8.8 fL (7.6-11.3); RBC Red Blood Cell Count 4.34 M/uL (3.86-4.86)
--- NOTE | 2019-04-28 10:20 | RAD REPORT ---
EXAM DESCRIPTION: RAD - Chest Single View - 04/28/2019 9:59 am CLINICAL HISTORY: ams Chest pain. COMPARISON: Chest Single View dated 03/30/2017; Chest Single View dated 02/13/2016 FINDINGS: Portable technique limits examination quality. Mild interstitial pulmonary edema suspected. The heart is mildly enlarged in size with a tortuous tho racic aorta. Patient's chin obscures the left apex. IMPRESSION: Mild CHF.
--- NOTE | 2019-04-28 10:20 | RAD REPORT ---
EXAM DESCRIPTION: CT - Head Brain Wo Cont - 04/28/2019 10:11 am CLINICAL HISTORY: Fall, head injury, transient alteration of awareness COMPARISON: None. TECHNIQUE: Axial 5 mm thick images of the head were obtained without IV contrast. All CT scans are performed using dose optimization technique as appropriate and may include automated exposure control or mA/KV adjustment according to patient size. FINDINGS: No intracranial hemorrhage, mass, edema or shift of mid-line structures. No acute cortical based infarction. No cortical edema or sulcal effacement. Prominent atrophy and chronic ischemic sophy nges are present. No abnormal extra-axial fluid collections. Ventricles are in proportion to volume l oss. Mastoid air cells and visualized portions of the paranasal sinuses are clear. Moderate-sized right frontal scalp hematoma is present. No skull fracture or acute bone finding. Marjorie rial and physiologic calcifications are present. IMPRESSION: Prominent atrophy and chronic ischemic change with no acute intracranial finding. Moderate-sized scalp hematoma along the lateral right frontal bone. No underlying skull fracture.
[2019-04-28 10:42] LABS: Albumin 3.5 g/dL (3.4-5.0); Bilirubin Direct 0.1 mg/dL (0-0.2); Bilirubin Total 0.5 mg/dL (0.2-1.0); Magnesium 2.1 mg/dL (1.8-2.4); Potassium 3.9 mmol/L (3.5-5.1); Protein, Total 7.8 g/dL (6.4-8.2)
--- NOTE | 2019-04-28 12:31 | ER ---
Nurse's Notes [facility] Name: Sarika Gasca Age: 78 yrs Sex: Female : 1940 Arrival Date: 04/28/2019 Time: 09:30 Bed 3 Private MD: Diagnosis: Altered mental status, unspecified Presentation: 04/28 09:30 Presenting complaint: EMS states: Toned out for unresponsive, pt responsive to verbal jl7 stimuli. Baseline pt is non-verbal, pt denied pain with head nod. Transition of care: patient was not received from another setting of care. Onset of symptoms was April 28, 2019. Risk Assessment: Do you want to hurt yourself or someone else? Patient reports no desire to harm self or others. Care prior to arrival: Glucose check: 125 BP 105/68, HR 75, Axillary temp 97.5. 09:30 Method Of Arrival: EMS: [facility] jl7 09:30 Acuity: ARIC 3 jl7 15:34 Initial Sepsis Screen: Does the patient meet any 2 criteria? HR > 90 bpm. No. Patient's jl7 initial sepsis screen is negative. Does the patient have a suspected source of infection? No. Patient's initial sepsis screen is negative. Historical: - Allergies: 09:36 METRONIDAZOLE; jl7 - Home Meds: 09:36 ferrous sulfate 325 mg (65 mg iron) Oral tab daily [Active]; Protonix 40 mg Oral TbEC 1 jl7 tab once daily [Active]; Prednisone 25mg Oral 1 tab once daily [Active]; - PMHx: 09:36 Anemia; Dementia; Osteoporosis; Rectal bleed; ulcerative colitis; GERD; jl7 - PSHx: 09:36 r wirst surgery; fractured pelvic repair; jl7 - Immunization history:: Adult Immunizations up to date. - Social history:: Smoking status: Patient/guardian denies using tobacco. - Ebola Screening: : No symptoms or risks identified at this time. Screenin:30 Abuse screen: Denies threats or abuse. Denies injuries from another. Nutritional jl7 screening: No deficits noted. Tuberculosis screening: No symptoms or risk factors identified. Fall Risk Fall in past 12 months (25 points). Secondary diagnosis (15 points) Alzheimer's, dementia, IV access (20 points). Ambulatory Aid- None/Bed Rest/Nurse Assist (0 pts). Gait- Weak (10 pts.). Mental Status- Overestimates/Forgets Limitations (15 pts.). Total Escoto Fall Scale indicates High Risk Score (45 or more points). Fall prevention measures have been instituted. Side Rails Up X 2 Placed Close to Nursing Station Frequent Obs/Assessments Occuring Family Present and informed to notify staff if the need to leave the bedside As available patient and family educated on Fall Prevention Program and Strategies. Assessment: 09:30 General: Appears in no apparent distress. uncomfortable, Behavior is calm, cooperative. jl7 Pain: Denies pain. Neuro: Level of Consciousness is awake, alert, obeys commands, confused, Oriented to person, baseline. Speech is normal. Cardiovascular: Patient's skin is warm and dry. Respiratory: Airway is patent Respiratory effort is even, unlabored, Respiratory pattern is regular, symmetrical. GI: Abdomen is non-distended, Abd is soft and non tender X 4 quads. Derm: Skin is pink, warm \\T\\ dry. 09:30 Reassessment: , Luis, at bedside, pt verbally responding. Pt states her name and jl7 when given warm blankets states "That feels good.". 10:30 Reassessment: Patient appears in no apparent distress at this time. No changes from jl7 previously documented assessment. Patient and/or family updated on plan of care and expected duration. Pain level reassessed. Patient is alert, oriented x 3, equal unlabored respirations, skin warm/dry/pink. 11:30 Reassessment: Patient appears in no apparent distress at this time. No changes from jl7 previously documented assessment. Patient and/or family updated on plan of care and expected duration. Pain level reassessed. Patient is alert, oriented x 3, equal unlabored respirations, skin warm/dry/pink. 12:11 Reassessment: Unable to obtain a urine from pt at this time. ERP notified. jl7 13:35 Reassessment: Called report to HANNAH Padilla at [facility], she is getting in touch with jl7 DON to see how to transport pt back. 13:50 Reassessment: HANNAH Padilla reports JASIEL will transport pt and she will call back with an jl7 ETA. Vital Signs: 09:36 BP 120 / 70; Pulse 95; Resp 22 S; Temp 97.5(R); Pulse Ox 98% on R/A; jl7 10:00 BP 99 / 75; Pulse 62; Resp 16 S; Pulse Ox 99% on R/A; jl7 11:00 BP 108 / 65; Pulse 59; Resp 16 S; Pulse Ox 100% on R/A; jl7 12:00 BP 122 / 73; Pulse 72; Resp 16 S; Pulse Ox 100% on R/A; jl7 13:35 BP 115 / 75; Pulse 57; Resp 16 S; Pulse Ox 99% on R/A; jl7 ED Course: 09:30 Patient arrived in ED. jl7 09:30 Patient has correct armband on for positive identification. Placed in gown. Bed in low jl7 position. Call light in reach. Side rails up X2. Adult w/ patient. aerial crop duster on. Pulse ox on. NIBP on. Warm blanket given. 09:33 Triage completed. jl7 09:36 Arm band placed on right wrist. jl7 09:39 Gil Wilder PA is PHCP. jr8 09:39 Rudy Everett MD is Attending Physician. jr8 10:00 XRAY Chest (1 view) In Process Unspecified. EDMS 10:06 Lori Patel, BRYN is Primary Nurse. jl7 10:07 Initial lab(s) drawn, by nh, sent to lab. Inserted saline lock: 22 gauge in right hand, jl7 using aseptic technique. Blood collected. 10:14 CT Head Brain wo Cont In Process Unspecified. EDMS 10:47 EKG done, by special procedures technologist. reviewed by Gil OSUNA. sm3 15:34 No provider procedures requiring assistance completed. IV discontinued, intact, jl7 bleeding controlled, No redness/swelling at site. Pressure dressing applied. Administered Medications: No medications were administered Outcome: 12:30 Discharge ordered by . jr8 15:34 Discharged to senior care. Report called to HANNAH Padilla jl7 15:34 Condition: stable 15:34 Discharge instructions given to patient, family, senior care, Instructed on discharge instructions, follow up and referral plans. Demonstrated understanding of instructions, follow-up care. 15:35 Patient left the ED. jl7 Signatures: Dispatcher [employer] EDLA Gil Wilder PA PA jrLori Souza RN RN jl7 Smiley Dye sm3
--- NOTE | 2019-04-28 12:31 | EDPHYS ---
Physician Documentation [facility] Name: Sarika Gasca Age: 78 yrs Sex: Female : 1940 Arrival Date: 04/28/2019 Time: 09:30 Bed 3 Private MD: ED Physician Rudy Everett HPI: 04/28 10:23 This 78 yrs old Female presents to ER via EMS with complaints of AMS. jr8 10:23 The patient presents with confusion. Onset: The symptoms/episode began/occurred jr8 acutely, today. Possible causes: unknown. Associated signs and symptoms: Pertinent positives: diaphoresis. Current symptoms: In the emergency department the patient's symptoms have improved. Patient's baseline: Neuro: alert but confused, orientated to person. It is unknown whether or not the patient has had similar symptoms in the past. The patient has not recently seen a physician. [facility] called EMS this morning because they noted that she was sweating and was more altered. BP low on scene. History of dementia. here stated that she looks better but also agreed that she is more slow and confused . Historical: - Allergies: 09:36 METRONIDAZOLE; jl7 - Home Meds: 09:36 ferrous sulfate 325 mg (65 mg iron) Oral tab daily [Active]; Protonix 40 mg Oral TbEC 1 jl7 tab once daily [Active]; Prednisone 25mg Oral 1 tab once daily [Active]; - PMHx: 09:36 Anemia; Dementia; Osteoporosis; Rectal bleed; ulcerative colitis; GERD; jl7 - PSHx: 09:36 r wirst surgery; fractured pelvic repair; jl7 - Immunization history:: Adult Immunizations up to date. - Social history:: Smoking status: Patient/guardian denies using tobacco. - Ebola Screening: : No symptoms or risks identified at this time. ROS: 10:23 Unable to obtain ROS due to altered mental status. jr8 Exam: 10:23 Eyes: Pupils equal round and reactive to light, extra-ocular motions intact. Lids and jr8 lashes normal. Conjunctiva and sclera are non-icteric and not injected. Cornea within normal limits. Periorbital areas with no swelling, redness, or edema. 10:23 Neck: Trachea midline, no thyromegaly or masses palpated, and no cervical lymphadenopathy. Supple, full range of motion without nuchal rigidity, or vertebral point tenderness. No Meningismus. Chest/axilla: Normal chest wall appearance and motion. Nontender with no deformity. No lesions are appreciated. Cardiovascular: Regular rate and rhythm with a normal S1 and S2. No gallops, murmurs, or rubs. Normal PMI, no JVD. No pulse deficits. Respiratory: Lungs have equal breath sounds bilaterally, clear to auscultation and percussion. No rales, rhonchi or wheezes noted. No increased work of breathing, no retractions or nasal flaring. Abdomen/GI: Soft, non-tender, with normal bowel sounds. No distension or tympany. No guarding or rebound. No evidence of tenderness throughout. Back: No spinal tenderness. No costovertebral tenderness. Full range of motion. Skin: Warm, dry with normal turgor. Normal color with no rashes, no lesions, and no evidence of cellulitis. MS/ Extremity: Pulses equal, no cyanosis. Neurovascular intact. Full, normal range of motion. 10:23 Head/face: Noted is ecchymosis, that is moderate, of the forehead. 10:23 Neuro: Orientation: to person, Mentation: able to follow commands, slow to respond, Memory: unable to test, Cranial nerves: CN I not tested, CN II- XII are normal as tested, extraocular movements are intact, Speech is clear and appropriate. Motor: moves all fours, Sensation: no obvious gross deficits, seizure activity, is not displayed by the patient, Abnormal movements: there are no abnormal movements. Vital Signs: 09:36 BP 120 / 70; Pulse 95; Resp 22 S; Temp 97.5(R); Pulse Ox 98% on R/A; jl7 10:00 BP 99 / 75; Pulse 62; Resp 16 S; Pulse Ox 99% on R/A; jl7 11:00 BP 108 / 65; Pulse 59; Resp 16 S; Pulse Ox 100% on R/A; jl7 12:00 BP 122 / 73; Pulse 72; Resp 16 S; Pulse Ox 100% on R/A; jl7 13:35 BP 115 / 75; Pulse 57; Resp 16 S; Pulse Ox 99% on R/A; jl7 MDM: 09:39 Patient medically screened. 8 12:28 Data reviewed: vital signs, nurses notes, lab test result(s), EKG, radiologic studies, rust CT scan, plain films. Data interpreted: Pulse oximetry: on room air is 98 %. Interpretation: normal. Counseling: I had a detailed discussion with the patient and/or guardian regarding: the historical points, exam findings, and any diagnostic results supporting the discharge/admit diagnosis, lab results, radiology results, the need for outpatient follow up, a family practitioner, to return to the emergency department if symptoms worsen or persist or if there are any questions or concerns that arise at home. ED course: No acute findings on exam, labs, ecg, or ct. Unable to obtain urine but no systemic findings. BP normal and without fluctuation. stated that she looks better and wants her to go back to CT. No reason to admit at this time. Will d/c back to CT with return precautions . 04/28 09:40 Order name: Basic Metabolic Panel; Complete Time: 10:54 04/28 09:40 Order name: CBC with Diff; Complete Time: 13:04 04/28 09:40 Order name: LFT's; Complete Time: 10:54 04/28 09:40 Order name: Magnesium; Complete Time: 10:54 04/28 09:40 Order name: PT-INR; Complete Time: 10:35 04/28 09:40 Order name: XRAY Chest (1 view); Complete Time: :35 04/28 09:40 Order name: EKG; Complete Time: 09:41 04/28 09:40 Order name: Cardiac monitoring; Complete Time: :44 04/28 09:40 Order name: EKG - Nurse/Tech; Complete Time: :44 04/28 09:40 Order name: IV Saline Lock; Complete Time: 10:04/28 09:41 Order name: CT Head Brain wo Cont; Complete Time: :35 04/28 10:17 Order name: CBC Smear Scan; Complete Time: 13:04 EDKY 04/28 10:25 Order name: glucometer results - FOR PT WITH NO ID; Complete Time: 13:43 aa5 04/28 09:40 Order name: Labs collected and sent; Complete Time: 10:04/28 09:40 Order name: O2 Per Protocol; Complete Time: 44 jr8 04/28 09:40 Order name: O2 Sat Monitoring; Complete Time: 8 Administered Medications: No medications were administered Disposition: 17:52 Co-signature as Attending Physician, Rudy Everett MD Did not see or evaluate patient. ps1 Chart signed for administrative purposes. Not an endorsement of care. . Disposition: 04/28/19 12:30 Discharged to Home. Impression: Altered mental status, unspecified. - Condition is Stable. - Discharge Instructions: Confusion, Dementia. - Medication Reconciliation Form, Thank You Letter, Antibiotic Education, Prescription Opioid Use form. - Follow up: Private Physician; When: 1 - 2 days; Reason: Recheck today's complaints, Continuance of care, Re-evaluation by your physician. - Problem is new. - Symptoms have improved. Signatures: Dispatcher [employer] EDMS Gil Wilder PA PA jr8 Lori Patel RN RN jl7 Rudy Everett MD MD ps1 Corrections: (The following items were deleted from the chart) 15:35 12:30 04/28/2019 12:30 Discharged to Home. Impression: Altered mental status, jl7 unspecified. Condition is Stable. Forms are Medication Reconciliation Form, Thank You Letter, Antibiotic Education, Prescription Opioid Use. Follow up: Private Physician; When: 1 - 2 days; Reason: Recheck today's complaints, Continuance of care, Re-evaluation by your physician. Problem is new. Symptoms have improved. jr8
[2019-04-28 13:01] LABS: Anisocytosis 1+; Blood Morphology Comment NOTED (NOT SEEN); Ovalocytes 1+; Platelet Estimate ADEQ; Urine White Blood Cell Casts OK
[2019-04-28 15:43] VITALS: TEMP 97.5
[2019-04-28 15:47] VITALS: BP 115/75; O2SAT 99
--- NOTE | 2019-04-28 16:32 | EKG ---
Test Date: 2019-04-28 Test Time: 09:36:59 Assembler: STEFAN MEASUREMENT RESULTS: Intervals: Rate: 96 OK: 144 QRSD: 80 QT: 354 QTc: 447 Wellman: P: 23 OK: 144 QRS: 0 T: 6 INTERPRETIVE STATEMENTS: Sinus rhythm with premature atrial complexes Cannot rule out Anterior infarct, age undetermined Abnormal ECG Compared to ECG 03/26/2018 09:14:43 Atrial premature complex(es) now present Myocardial infarct finding now present Ventricular premature complex(es) no longer present Electronically Signed On 04-28-19 16:30:21 BEADING MACHINE OPERATOR by Eugenio Smallwood
== END 2019-04-28 15:35 | disposition home or self-care (01) ==
LOC: ER 09:25
DX: R41.82 Altered mental status, unspecified (principal); F03.90 Unspecified dementia, unspecified severity, without behavioral disturbance, psychotic disturbance, mood disturbance, and anxiety; D64.9 Anemia, unspecified; Z88.8 Allergy status to other drugs, medicaments and biological substances
CPT/HCPCS: 36415; 70450; 71045; 80048; 80076; 82947; 83735; 85025; 85610; 93005; 99284

== ENCOUNTER 2020-04-12 10:45 | Inpatient (IN) | payer OTHER ==
--- OUTSIDE RECORDS SUMMARY | 2020-04-12 10:47 | XMS REPORT | Continuity of Care Document ---
:1940 Author Organization [facility] t Address [address] [place] [address] Care Team Providers Name Role Phone Doctor Unassigned, Name Attending Clinician Unavailable 1, Infusion Chair Attending Clinician Unavailable 1, Infusion Nurse Attending Clinician Unavailable Problems This patient has no known problems. Allergies, Adverse Reactions, Alerts This patient has no known allergies or adverse reactions. Medications This patient has no known medications. Procedures This patient has no known procedures. Encounters Start End Encounter Admission Attending Care Care Encounter Source Date/Time Date/Time Type Type Clinicians Facility Department ID 2020-02-03 2020-02-03 Orders Doctor SHELBY [id number] 00:00:00 00:00:00 Only UnassignedGARY [id number] [place] [facility] [id number] [id number] 2019-07-17 2019-07-17 Nurse 1, [facility] Infusion Chair [facility] 1.2. 840.114 [id number] 08:56:49 09:26:49 Visit 1, [facility] Infusion Nurse Barbara 350.1.1 3.10 [place] [id number] Surgical [phone] [place] 053 2019-07-17 2019-07-17 Orders Doctor SHELBY [id number] 00:00:00 00:00:00 Only UnassignedGARY [id number] [place] [facility] [id number] [id number] 2019-02-03 2019-02-03 Nurse 1, [facility] Infusion Chair [facility] 1.2. 840.114 [id number] 08:52:52 10:22:52 Visit 1, [facility] Infusion Nurse Barbara 350.1.1 3.10 [place] [id number] Surgical [id number] [place] [address] 2019-02-03 2019-02-03 Orders Doctor SHELBY [id number] 00:00:00 00:00:00 Only Unassigned, GARY [id number] [place] [facility] [id number] [id number] 2019-01-07 2019-01-07 Nurse 1, [facility] Infusion Chair [facility] 1.2. 840.114 [id number] 09:09:00 10:09:00 Visit 1, [facility] Infusion Nurse Barbara 350.1.1 3.10 [place] [id number] Surgical [id number] [place] [address] 2019-01-07 2019-01-07 Orders Doctor SHELBY [id number] 00:00:00 00:00:00 Only Unassigned, GARY [id number] [place] [id number] 009 Results This patient has no known results.
[2020-04-12] MEDS ORDERED: NA CHLORIDE 0.9% 500 ML ONE (13:18)
--- NOTE | 2020-04-12 13:30 | RAD REPORT ---
EXAM DESCRIPTION: CT - Head Brain Wo Cont - 04/12/2020 1:17 pm CLINICAL HISTORY: Alteration of awareness/confusion COMPARISON: 2019 TECHNIQUE: Computed axial tomography of the head was obtained. IV contrast was not requested. All CT scans are performed using dose optimization technique as appropriate and may include automated exposure control or mA/KV adjustment according to patient size. FINDINGS: An intracranial bleed is not seen . The ventricles are normal in caliber. No extra-axial fluid collection is noted. Cerebral atrophy is present Moderate low-density areas within periventricular, deep and subcortical white matter likely represent ischemic changes secondary to small vessel disease. Fluid within the sinuses/ mastoids is not seen. IMPRESSION: No acute intracranial abnormality is seen. If patient's symptoms persist MRI of the bra in would be recommended.
--- NOTE | 2020-04-12 15:04 | ER ---
Nurse's Notes [facility] Name: Sarika Gasca Age: 79 yrs Sex: Female : 1940 Arrival Date: 04/12/2020 Time: 10:50 Bed 2 Private MD: Diagnosis: Dementia in other diseases classified elsewhere;Altered mental status, unspecified;Urinary tract infection, site not specified;Weakness Presentation: 04/12 10:50 Chief complaint: EMS states: "she was found unresponsive in bed by nursing staff and aa5 staff had difficulty waking her". Pt is now A\\T\\O x 3 and denies any complaints. 10:50 Acuity: ARIC 3 aa5 10:50 Method Of Arrival: EMS: [facility] aa5 10:50 Coronavirus screen: Client denies travel out of the [place] in the last 14 days. At this aa5 time, the client does not indicate any symptoms associated with coronavirus-19. Ebola Screen: Patient negative for fever greater than or equal to 101.5 degrees Fahrenheit, and additional compatible Ebola Virus Disease symptoms. Initial Sepsis Screen: Does the patient meet any 2 criteria? No. Patient's initial sepsis screen is negative. Does the patient have a suspected source of infection? No. Patient's initial sepsis screen is negative. Risk Assessment: Do you want to hurt yourself or someone else? Patient reports no desire to harm self or others. Onset of symptoms was April 12, 2020. 10:50 Care prior to arrival: IV initiated. 20 GA, in the left antecubital area, Glucose aa5 check: 88. Triage Assessment: 10:51 General: Appears in no apparent distress. comfortable, Behavior is calm, cooperative, bp appropriate for age. Pain: Denies pain. EENT: No deficits noted. Neuro: Level of Consciousness is awake, alert, obeys commands, Oriented to person, place, time, Appropriate for age. Cardiovascular: Rhythm is sinus rhythm. Respiratory: No deficits noted. GI: No signs and/or symptoms were reported involving the gastrointestinal system. : No signs and/or symptoms were reported regarding the genitourinary system. Derm: No deficits noted. Musculoskeletal: No deficits noted. Historical: - Allergies: 10:53 METRONIDAZOLE; bp - PMHx: 10:53 Anemia; Dementia; GERD; Osteoporosis; Rectal bleed; ulcerative colitis; bp - Immunization history:: Adult Immunizations up to date. - Social history:: Smoking status: Patient denies any tobacco usage or history of. - Family history:: not pertinent. Screenin:54 Abuse screen: Denies threats or abuse. Denies injuries from another. Nutritional bp screening: No deficits noted. Tuberculosis screening: No symptoms or risk factors identified. Fall Risk None identified. Assessment: 10:54 General: SEE TRIAGE NOTE. PT DENIES MEDICAL NEED. bp 11:36 Reassessment: Patient appears in no apparent distress at this time. Patient and/or bp family updated on plan of care and expected duration. Pain level reassessed. Patient is alert, oriented x 3, equal unlabored respirations, skin warm/dry/pink. 13:09 Reassessment: PT TO CT. bp 14:00 Reassessment: PT INCONTINENT TO STOOL AND INAPPROPRIATE WITH FECES, ATTEMPTING TO SMEAR bp FECES ON SELF AND STAFF. PT CHANGED AND BATHED. 16:00 Reassessment: PT D/C OWN PIV AND MONITORING, AOx0. PT NOT RESPONDING TO VERBAL bp REDIRECTION. RESTRAINTS PLACED FOR CONTINUATION OF CARE AND PT SAFETY. 17:00 Reassessment: Patient appears in no apparent distress at this time. Patient and/or bp family updated on plan of care and expected duration. Pain level reassessed. ADMIT IN PROCESS. PT REMAINS AOx0 AND NON-REDIRECTABLE. 18:00 Reassessment: ADMIT IN PROCESS. PT REMAINS AOx0, UNABLE TO ARTICULATE RESTRAINT RELEASE bp CRITERIA. 19:00 General: Appears in no apparent distress. Behavior is dementia . rr5 19:00 Pain: Unable to use pain scale. Patient appears confused. Neuro: Level of Consciousness rr5 is awake, alert, Oriented to none. Cardiovascular: Capillary refill < 3 seconds Patient's skin is warm and dry. Respiratory: Airway is patent Respiratory effort is even, unlabored, Respiratory pattern is regular, symmetrical. GI: No signs and/or symptoms were reported involving the gastrointestinal system. : No signs and/or symptoms were reported regarding the genitourinary system. EENT: No signs and/or symptoms were reported regarding the EENT system. Derm: Skin is fragile, is thin, Skin temperature is warm. Musculoskeletal: Capillary refill < 3 seconds. 20:00 Reassessment: Patient appears in no apparent distress at this time. awaiting for room rr5 assignment. 20:54 Reassessment: report given to willie CLEMENTE awake alert, vital signs stable. rr5 Vital Signs: 10:50 BP 100 / 74; Pulse 66; Resp 16 S; Temp 97.8(O); Pulse Ox 95% on R/A; aa5 12:00 BP 130 / 87; Pulse 95; Resp 17; Pulse Ox 95% on R/A; zb 13:00 BP 121 / 81; Pulse 92; Resp 18; Pulse Ox 97% ; zb 14:00 BP 110 / 91; Pulse 91; Resp 18; Pulse Ox 98% ; bp 15:00 BP 131 / 80; Pulse 78; Resp 17; Pulse Ox 96% ; bp 16:00 BP 132 / 87; Pulse 91; Resp 17; Pulse Ox 95% ; bp 17:00 BP 141 / 96; Pulse 98; Resp 16; Pulse Ox 98% ; bp 18:00 BP 144 / 105; Pulse 98; Resp 17; Pulse Ox 97% ; bp 19:00 BP 146 / 85; Pulse 95; Resp 19; Temp 98; Pulse Ox 99% ; rr5 20:00 BP 133 / 75; Pulse 92; Resp 16; Pulse Ox 98% ; rr5 20:50 BP 125 / 85; Pulse 92; Resp 19; Temp 97.5; Pulse Ox 99% ; rr5 NIH Stroke Scale Scores: 10:51 NIHSS Score: 3 bp ED Course: 10:50 Patient arrived in ED. bp 10:51 Arm band placed on. bp 10:54 Patient has correct armband on for positive identification. Bed in low position. Call bp light in reach. Side rails up X2. Adult w/ patient. monitoring manager on. Pulse ox on. NIBP on. 10:54 Maintain EMS IV. Dressing intact. Good blood return noted. Site clean \\T\\ dry. Gauge \\T\\ bp site: 20 G LEFT AC. 10:55 Triage completed. aa5 11:15 Cricket Black MD is Attending Physician. sophy 11:34 Frantz Pierce, RN is Primary Nurse. bp 12:45 Initial lab(s) drawn, by ED staff, sent to lab. kj1 12:51 EKG done. kj1 13:18 CT Head Brain wo Cont In Process Unspecified. EDMS 13:24 CT completed. Patient tolerated procedure well. Patient moved back from CT. sj 14:42 XRAY Chest (1 view) In Process Unspecified. EDMS 15:02 Joce Damon MD is Hospitalizing Provider. sophy 17:00 Inserted saline lock: 22 gauge in right forearm, using aseptic technique. bp 17:32 Urine Dipstick--Ancillary (enter results) Sent. bp 20:54 No provider procedures requiring assistance completed. Patient admitted, IV remains in rr5 place. intact, No redness/swelling at site. Restraints: 16:00 Non-Violent Restraint: Order obtained. Initiated on April 12, 2020 at 16:00 Unable bp to provide Restraint education. PT AOx0, DOES NOT COMPREHEND. Actions/Behavior observed: Confused/disoriented, has difficulty remembering/follow instructions, has impaired decision making, unable to follow instructions, repeated attempts to remove/tamper lines/tubes/IV med devices \\T\\ wound dressing, Less restrictive alternatives attempted: decrease environmental stimuli, placed near Nurse station, reoriented to location, medications evaluated, repositioned, lines/tubes covered, eliminated unnecessary lines/tubes, verbal de-escalation performed, Alternative interventions: Ineffective. Clinical justification for use: line protection, patient safety, Mental status: agitated/restless, confused, Cognition: Unable to assess. poor judgement, poor safety awareness, impulsive, unable to follow commands, Circulation: Within defined parameters (based on Cardiovascular assessment) Skin integrity: Within defined parameters (based on Integumentary assessment) Signs of injury related to restraint: No injuries noted. Range of Motion (ROM): performed. Hydration/Food: patient declined. Elimination/Hygiene: diapers changed. Restraint status: Soft wrist restraint (Right) Started. Soft wrist restraint (Left) Started. Criteria to discontinue Restraint not met. Restraint continued. 19:00 Non-Violent Restraint: Unable to provide Restraint education. confused. rr5 Actions/Behavior observed: Confused/disoriented, has difficulty remembering/follow instructions, has impaired decision making, unable to follow instructions, repeated attempts to remove/tamper lines/tubes/IV med devices \\T\\ wound dressing, Less restrictive alternatives attempted: decrease environmental stimuli, placed near Nurse station, reoriented to location, repositioned, Alternative interventions: Ineffective. Clinical justification for use: line protection, patient safety. 19:00 Non-Violent Restraint: Mental status: agitated/restless, confused, Cognition: Unable to rr5 assess. poor judgement, poor safety awareness, impulsive, Circulation: Within defined parameters (based on Cardiovascular assessment) Skin integrity: Within defined parameters (based on Integumentary assessment) Signs of injury related to restraint: No injuries noted. Range of Motion (ROM): performed. Hydration/Food: patient declined. Restraint status: Soft wrist restraint (Right) Continued. Soft wrist restraint (Left) Continued. 20:50 Non-Violent Restraint: Unable to provide Restraint education. confused. rr5 Actions/Behavior observed: Confused/disoriented, has difficulty remembering/follow instructions, has impaired decision making, Less restrictive alternatives attempted: decrease environmental stimuli, placed near Nurse station, reoriented to location, repositioned, Alternative interventions: Ineffective. Clinical justification for use: line protection, patient safety, Mental status: agitated/restless, confused, Cognition: Unable to assess. poor judgement, poor safety awareness, impulsive, Circulation: Within defined parameters (based on Cardiovascular assessment) Skin integrity: Within defined parameters (based on Integumentary assessment) Signs of injury related to restraint: No injuries noted. Range of Motion (ROM): performed. Restraint status: Soft wrist restraint (Right) Continued. Soft wrist restraint (Left) Continued. Administered Medications: 13:00 Drug: NS 0.9% 500 ml Route: IV; Rate: bolus; Site: left forearm; bp 16:20 Follow up: IV Status: Completed infusion; IV Intake: 500ml bp 15:00 Drug: Rocephin 1 grams Route: IV; Rate: per protocol; Site: left jugular; bp 16:19 Follow up: IV Status: Completed infusion; IV Intake: 100ml bp Intake: 16:19 IV: 100ml; Total: 100ml. bp 16:20 IV: 500ml; Total: 600ml. bp Outcome: 15:03 Decision to Hospitalize by Provider. sophy 20:54 Admitted to ER Hold. Please see [facility] for further documentation. rr5 20:54 Condition: stable 20:54 Instructed on the need for admit. 20:55 Patient left the ED. rr5 NIH Stroke Scale - NIH Stroke Score Date: 04/12/2020 Time: 10:51 Total Score = 3 1a. Level of Consciousness (LOC) - 0(Alert) 1b. Level of Consciousness (LOC) (Year \\T\\ Age) - 1(One) 1c. LOC Commands (Open \\T\\ Closes Eyes/Sheet Catcher) - 0(Both) 2. Best Gaze (Lateral Gaze Paresis) - 0(Normal) 3. Visual Field Loss - 0(No visual loss) 4. Facial Palsy - 0(Normal) 5a. Left Arm: Motor (10-second hold) - 0(No drift) 5b. Right Arm: Motor (10-second hold) - 0(No drift) 6a. Left Leg: Motor (5-second hold - always test supine) - 1(Drift) 6b. Right Leg: Motor (5-second hold - always test supine) - 1(Drift) 7. Limb Ataxia (finger/nose \\T\\ heel/armando - test with eyes open) - 0(Absent) 8. Sensory Loss (pinprick arms/legs/face) - 0(Normal) 9. Best Language: Aphasia (description/naming/reading) - 0(No aphasia) 10. Dysarthria (speech clarity - read or repeat words) - 0(Normal) 11. Extinction and Inattention (visual/tactile/auditory/spatial/personal) - 0(No abnormality) Initials: bp Signatures: Dispatcher [employer] EDMS Cricket Black MD MD cha Jones, Susan sj Calderon, Audri, RN RN aa5 Frantz Pierce RN RN Joce Ochoa RN RN rr5 Rhona Whatley kj1 Elsy Bolaños RN RN zb Corrections: (The following items were deleted from the chart) 11:36 10:54 General: SEE TRIAGE NOTE. bp bp 04/13 02:03 04/12 21:00 BP 125 / 85; Pulse 92bpm; Resp 19bpm; Pulse Ox 99%; Temp 97.5F; rr5 rr5
--- NOTE | 2020-04-12 15:05 | EDPHYS ---
Physician Documentation [facility] Name: Sarika Gasca Age: 79 yrs Sex: Female : 1940 Arrival Date: 04/12/2020 Time: 10:50 Bed 2 Private MD: ED Physician Cricket Black HPI: 04/12 13:56 This 79 yrs old Female presents to ER via EMS with complaints of ASYMPTOMATIC.sophy 13:56 not responsive, then they awoke patient. The patient presents with trouble sophy concentrating. Onset: The symptoms/episode began/occurred baseline. Possible causes: CVA or TIA, head injury, low blood sugar, unknown. Associated signs and symptoms: Pertinent positives: confusion, hx of dementia. Onset: The symptoms/episode began/occurred just prior to arrival. Current symptoms: In the emergency department the patient's symptoms have improved, pt awoke, and at baseline. Patient's baseline: Neuro: alert but confused, Motor: no deficits. Severity of symptoms: At their worst the symptoms were very mild in the emergency department the symptoms are unchanged. Historical: - Allergies: 10:53 METRONIDAZOLE; bp - PMHx: 10:53 Anemia; Dementia; GERD; Osteoporosis; Rectal bleed; ulcerative colitis; bp - Immunization history:: Adult Immunizations up to date. - Social history:: Smoking status: Patient denies any tobacco usage or history of. - Family history:: not pertinent. ROS: 13:56 Constitutional: Negative for fever, chills, and weight loss, Eyes: Negative for injury, sophy pain, redness, and discharge, ENT: Negative for injury, pain, and discharge, Neck: Negative for injury, pain, and swelling, Cardiovascular: Negative for chest pain, palpitations, and edema, Respiratory: Negative for shortness of breath, cough, wheezing, and pleuritic chest pain, Abdomen/GI: Negative for abdominal pain, nausea, vomiting, diarrhea, and constipation, Back: Negative for injury and pain, : Negative for injury, bleeding, discharge, and swelling, MS/Extremity: Negative for injury and deformity, Skin: Negative for injury, rash, and discoloration, Psych: Negative for depression, anxiety, suicide ideation, homicidal ideation, and hallucinations, Allergy/Immunology: Negative for hives, rash, and allergies, Endocrine: Negative for neck swelling, polydipsia, polyuria, polyphagia, and marked weight changes, Hematologic/Lymphatic: Negative for swollen nodes, abnormal bleeding, and unusual bruising. 13:56 Neuro: Positive for weakness. Exam: 14:05 ECG was reviewed by the Attending Physician. sophy 14:44 Constitutional: This is a well developed, well nourished patient who is awake, alert, sophy and in no acute distress. Head/Face: Normocephalic, atraumatic. Eyes: Pupils equal round and reactive to light, extra-ocular motions intact. Lids and lashes normal. Conjunctiva and sclera are non-icteric and not injected. Cornea within normal limits. Periorbital areas with no swelling, redness, or edema. ENT: Nares patent. No nasal discharge, no septal abnormalities noted. Tympanic membranes are normal and external auditory canals are clear. Oropharynx with no redness, swelling, or masses, exudates, or evidence of obstruction, uvula midline. Mucous membranes moist. Neck: Trachea midline, no thyromegaly or masses palpated, and no cervical lymphadenopathy. Supple, full range of motion without nuchal rigidity, or vertebral point tenderness. No Meningismus. Chest/axilla: Normal chest wall appearance and motion. Nontender with no deformity. No lesions are appreciated. Cardiovascular: Regular rate and rhythm with a normal S1 and S2. No gallops, murmurs, or rubs. Normal PMI, no JVD. No pulse deficits. Respiratory: Lungs have equal breath sounds bilaterally, clear to auscultation and percussion. No rales, rhonchi or wheezes noted. No increased work of breathing, no retractions or nasal flaring. Abdomen/GI: Soft, non-tender, with normal bowel sounds. No distension or tympany. No guarding or rebound. No evidence of tenderness throughout. Back: No spinal tenderness. No costovertebral tenderness. Full range of motion. Female : Normal external genitalia. Skin: Warm, dry with normal turgor. Normal color with no rashes, no lesions, and no evidence of cellulitis. MS/ Extremity: Pulses equal, no cyanosis. Neurovascular intact. Full, normal range of motion. Psych: Awake, alert, with orientation to person, place and time. Behavior, mood, and affect are within normal limits. 14:44 Neuro: Orientation: 14:44 Neuro: Orientation: to person, place, Not oriented to time, situation, Mentation: no acute changes, Memory: immediate memory is impaired, remote memory is impaired, recent memory is impaired, Cranial nerves: is grossly normal based on the patient's age, no acute changes, Cerebellar function: is grossly normal based on the patient's age, no acute changes, Motor: moves all fours, Sensation: no obvious gross deficits, no acute changes, Gait: not tested. seizure activity, is not displayed by the patient. Vital Signs: 10:50 BP 100 / 74; Pulse 66; Resp 16 S; Temp 97.8(O); Pulse Ox 95% on R/A; aa5 12:00 BP 130 / 87; Pulse 95; Resp 17; Pulse Ox 95% on R/A; zb 13:00 BP 121 / 81; Pulse 92; Resp 18; Pulse Ox 97% ; zb 14:00 BP 110 / 91; Pulse 91; Resp 18; Pulse Ox 98% ; bp 15:00 BP 131 / 80; Pulse 78; Resp 17; Pulse Ox 96% ; bp 16:00 BP 132 / 87; Pulse 91; Resp 17; Pulse Ox 95% ; bp 17:00 BP 141 / 96; Pulse 98; Resp 16; Pulse Ox 98% ; bp 18:00 BP 144 / 105; Pulse 98; Resp 17; Pulse Ox 97% ; bp 19:00 BP 146 / 85; Pulse 95; Resp 19; Temp 98; Pulse Ox 99% ; rr5 20:00 BP 133 / 75; Pulse 92; Resp 16; Pulse Ox 98% ; rr5 20:50 BP 125 / 85; Pulse 92; Resp 19; Temp 97.5; Pulse Ox 99% ; rr5 NIH Stroke Scale Scores: 10:51 NIHSS Score: 3 bp MDM: 11:15 Patient medically screened. sophy 14:01 Differential Diagnosis altered mental status, sepsis. Differential Diagnosis: CVA, sophy electrolyte abnormality, hypoglycemia, intracranial bleed, pneumonia, seizure, TIA, UTI, volume depletion. Data reviewed: vital signs, nurses notes, lab test result(s), EKG, radiologic studies, CT scan, plain films. Data interpreted: campus monitor: rate is 92 beats/min, rhythm is regular, Pulse oximetry: is not applicable for this patient encounter. Test interpretation: by ED physician or midlevel provider: ECG, plain radiologic studies. Counseling: I had a detailed discussion with the patient and/or guardian regarding: the historical points, exam findings, and any diagnostic results supporting the discharge/admit diagnosis, lab results, radiology results, the need for outpatient follow up, for definitive care, an huc. 04/12 12:30 Order name: Basic Metabolic Panel; Complete Time: 15:48 bp 04/12 12:30 Order name: CBC with Diff; Complete Time: 15:48 bp 04/12 12:30 Order name: LFT's; Complete Time: 15:48 bp 04/12 12:30 Order name: Magnesium; Complete Time: 15:48 bp 04/12 12:30 Order name: NT PRO-BNP; Complete Time: 15:48 bp 04/12 12:30 Order name: PT-INR; Complete Time: 15:48 bp 04/12 12:30 Order name: Troponin (emerg Dept Use Only); Complete Time: 15:48 bp 04/12 12:30 Order name: XRAY Chest (1 view); Complete Time: 15:48 bp 04/12 12:30 Order name: CT Head Brain wo Cont; Complete Time: 14:02 bp 04/12 12:40 Order name: Urine Culture [facility] 04/12 13:00 Order name: Glucose, Ancillary Testing; Complete Time: 14:02 EDMS 04/12 14:49 Order name: Urine Dipstick--Ancillary (enter results) [facility] 04/12 14:50 Order name: Urine Dipstick-Ancillary [facility] 04/12 12:30 Order name: EKG; Complete Time: 12:31 bp 04/12 12:30 Order name: Cardiac monitoring; Complete Time: 13:01 bp 04/12 12:30 Order name: EKG - Nurse/Tech; Complete Time: 13:01 bp 04/12 12:30 Order name: IV Saline Lock; Complete Time: 13: bp 04/12 12:30 Order name: Labs collected and sent; Complete Time: 13:01 bp 04/12 12:30 Order name: O2 Per Protocol; Complete Time: 13:01 bp 04/12 12:30 Order name: O2 Sat Monitoring; Complete Time: 13:01 bp 04/12 12:40 Order name: Urine Dipstick-Ancillary (obtain specimen); Complete Time: 14:40 [facility] 04/12 12:40 Order name: Blood Glucose Level; Complete Time: 13:00 sophy 04/12 16:19 Order name: Restraint:Non-Violent; Complete Time: 16:19 zb EC:05 Rate is 94 beats/min. Rhythm is regular. QRS [place] is Normal. WI interval is normal. QRS spohy interval is normal. QT interval is normal. No Q waves. T waves are Normal. No ST changes noted. Clinical impression: NSR w/ Non-specific ST/T Changes and No evidence of ischemia. Interpreted by me. Reviewed by me. Administered Medications: 13:00 Drug: NS 0.9% 500 ml Route: IV; Rate: bolus; Site: left forearm; bp 16:20 Follow up: IV Status: Completed infusion; IV Intake: 500ml bp 15:00 Drug: Rocephin 1 grams Route: IV; Rate: per protocol; Site: left jugular; bp 16:19 Follow up: IV Status: Completed infusion; IV Intake: 100ml bp Disposition: 04/12/20 15:03 Hospitalization ordered by Joce Damon for Inpatient Admission. Preliminary diagnosis are Dementia in other diseases classified elsewhere, Altered mental status, unspecified, Urinary tract infection, site not specified, Weakness. - Bed requested for Telemetry/MedSurg (Inpatient). - Status is Inpatient Admission. rr5 - Condition is Fair. - Problem is new. - Symptoms have improved. NIH Stroke Scale - NIH Stroke Score Date: 04/12/2020 Time: 10:51 Total Score = 3 1a. Level of Consciousness (LOC) - 0(Alert) 1b. Level of Consciousness (LOC) (Year \T\ Age) - 1(One) 1c. LOC Commands (Open \T\ Closes Eyes/Process Engineering Manager) - 0(Both) 2. Best Gaze (Lateral Gaze Paresis) - 0(Normal) 3. Visual Field Loss - 0(No visual loss) 4. Facial Palsy - 0(Normal) 5a. Left Arm: Motor (10-second hold) - 0(No drift) 5b. Right Arm: Motor (10-second hold) - 0(No drift) 6a. Left Leg: Motor (5-second hold - always test supine) - 1(Drift) 6b. Right Leg: Motor (5-second hold - always test supine) - 1(Drift) 7. Limb Ataxia (finger/nose \T\ heel/armando - test with eyes open) - 0(Absent) 8. Sensory Loss (pinprick arms/legs/face) - 0(Normal) 9. Best Language: Aphasia (description/naming/reading) - 0(No aphasia) 10. Dysarthria (speech clarity - read or repeat words) - 0(Normal) 11. Extinction and Inattention (visual/tactile/auditory/spatial/personal) - 0(No abnormality) Initials: bp Signatures: Dispatcher [employer] EDMS Cricket Black MD MD cha Peltier, Brian, RN RN bp Roque, Raymond, RN RN rr5 Elsy Bolaños RN RN zb Corrections: (The following items were deleted from the chart) 14:46 13:56 Constitutional: This is a well developed, well nourished patient who is sophy awake, alert, and in no acute distress. Head/Face: Normocephalic, atraumatic. Eyes: Pupils equal round and reactive to light, extra-ocular motions intact. Lids and lashes normal. Conjunctiva and sclera are non-icteric and not injected. Cornea within normal limits. Periorbital areas with no swelling, redness, or edema. ENT: Nares patent. No nasal discharge, no septal abnormalities noted. Tympanic membranes are normal and external auditory canals are clear. Oropharynx with no redness, swelling, or masses, exudates, or evidence of obstruction, uvula midline. Mucous membranes moist. Neck: Trachea midline, no thyromegaly or masses palpated, and no cervical lymphadenopathy. Supple, full range of motion without nuchal rigidity, or vertebral point tenderness. No Meningismus. Chest/axilla: Normal chest wall appearance and motion. Nontender with no deformity. No lesions are appreciated. Cardiovascular: Regular rate and rhythm with a normal S1 and S2. No gallops, murmurs, or rubs. Normal PMI, no JVD. No pulse deficits. Respiratory: Lungs have equal breath sounds bilaterally, clear to auscultation and percussion. No rales, rhonchi or wheezes noted. No increased work of breathing, no retractions or nasal flaring. Abdomen/GI: Soft, non-tender, with normal bowel sounds. No distension or tympany. No guarding or rebound. No evidence of tenderness throughout. Back: No spinal tenderness. No costovertebral tenderness. Full range of motion. Female : Normal external genitalia. Skin: Warm, dry with normal turgor. Normal color with no rashes, no lesions, and no evidence of cellulitis. MS/ Extremity: Pulses equal, no cyanosis. Neurovascular intact. Full, normal range of motion. Psych: Awake, alert, with orientation to person, place and time. Behavior, mood, and affect are within normal limits. sophy 14:46 13:56 Neuro: Orientation: Not oriented to person, place, time, situation, sophy Mentation: no acute changes, Memory: unable to test, Cranial nerves: Cerebellar function: unable to test, Motor: moves all fours, Sensation: no obvious gross deficits, Gait: not tested. seizure activity, is not displayed by the patient, [facility] 20:55 15:03 Hospitalization Ordered by Joce Damon MD for Inpatient Admission. rr5 Preliminary diagnosis is Dementia in other diseases classified elsewhere; Altered mental status, unspecified; Urinary tract infection, site not specified; Weakness. Bed requested for Telemetry/MedSurg (Inpatient). Status is Inpatient Admission. Condition is Fair. Problem is new. Symptoms have improved. sophy
[2020-04-12 15:11] LABS: Absolute Lymphocytes (CBC) 1.2 K/uL (0.7-4.9); Basophils % 0.4 % (0-1.3); Hematocrit 34.5 % (36.0-45.0); Lymphocytes % 12.4 % (15.3-44.8); MPV 9.1 fL (7.6-11.3); RBC Red Blood Cell Count 3.89 M/uL (3.86-4.86)
--- NOTE | 2020-04-12 15:11 | RAD REPORT ---
EXAM DESCRIPTION: Venkat Single View04/12/2020 2:42 pm CLINICAL HISTORY: Shortness breath COMPARISON: 2019 FINDINGS: The lungs appear clear of acute infiltrate. The heart is mildly enlarged IMPRESSION: No acute abnormalities displayed
[2020-04-12 15:16] LABS: Protime INR 0.98
[2020-04-12] MEDS ORDERED: CEFTRIAXONE/SWI 1gm 1 GM/10 ML SYR ONE (15:20)
[2020-04-12] MEDS ORDERED: NA CHLORIDE 0.9% 100 ML ONE (15:20)
[2020-04-12 15:32] LABS: ALT/SGPT 17 U/L (12-78); AST/SGOT 14 U/L (15-37); Albumin 3.1 g/dL (3.4-5.0); Alkaline Phosphatase 87 U/L (45-117); BUN Blood Urea Nitrogen 21 mg/dL (7-18); Bicarbonate 26 mmol/L (21-32); Bilirubin Direct < 0.1 mg/dL (0-0.2); Bilirubin Total 0.3 mg/dL (0.2-1.0); Glucose Level 87 mg/dL (74-106); NT PRO-BNP 161 pg/mL (<450); Potassium 3.6 mmol/L (3.5-5.1); Protein, Total 6.4 g/dL (6.4-8.2); Sodium Level 146 mmol/L (136-145); Troponin (Emerg Dept Use Only) < 0.02 ng/mL (0.0-0.045)
[2020-04-12 16:14] LABS: Urine Blood 2+ (NEG); Urine Glucose NEGATIVE (NEG); Urine Protein 1+ (NEG); Urine Specific Gravity >1.030 (1.005-1.030); Urine pH 5.5 (5.0-7.0)
--- NOTE | 2020-04-12 16:33 | P.HP ---
Certification for Inpatient Patient admitted to: Inpatient With expected LOS: >2 Midnights Patient will require the following post-hospital care: [facility]dc (return to where she came) Practitioner: I am a practitioner with admitting privileges, knowledge of patient current condition, hospital course, and medical plan of care. Services: Services provided to patient in accordance with Admission requirements found in Title 42 Section 412.3 of the Code of Federal Regulations Patient History Date of Service: 04/12/20 Reason for admission: UTI, AMS History of Present Illness: Unable to be obtained due to patient's dementia and altered mental status. History obtained from ED physician. Reportedly, patient has been having increased altered mental status, noted by fdc staff. Due to her increased confusion she was sent to the ED. In the ED, she was found to have workup consistent with a UTI. Patient is pleasantly confused at this time, reports no pain and no current problems. In the ED, there was difficulty obtaining IV access, ED physician had to place an EJ, which patient pulled out prior to my arrival. The patient was placed in physical restraints. Allergies No Known Allergies Allergy (Verified 06/30/18 18:30) Home Medications: Adalimumab [Humira(Cf) Pen] 40 mg IM SEECOM 03/18/18 Alendronate Sodium 1 tab PO EVERY 7TH DAY 03/18/18 Ferrous Sulfate 325 mg PO BID 03/18/18 Mesalamine [Delzicol] 2 tab PO TID 03/18/18 Pantoprazole [Protonix Tab*] 1 tab PO Q48H 03/18/18 predniSONE [Prednisone*] 25 mg PO DAILY 06/30/18 - Past Medical/Surgical History Diabetic: No -: Dementia -: Iron deficiency anemia -: Ulceratice colitis -: Osteoporosis -: Osteoarthritis -: Atrial fibrillation -: Right arm surgery -: Fractured pelvis surgery -: D&C -: a-fib - Family History Father -: Hypertension - Social History Smoking Status: Unknown if ever smoked Alcohol use: No CD- Drugs: No Caffeine use: No Review of Systems is unable to be obtained Physical Examination - Physical Exam General: In no apparent distress, Disheveled, Demented, Confused HEENT: Sclerae nonicteric Neck: Supple Respiratory: Clear to auscultation bilaterally Cardiovascular: No edema, Regular rate/rhythm Gastrointestinal: Soft and benign, Non-distended, No tenderness Musculoskeletal: No tenderness Neurological: Normal speech, Dementia - Studies Laboratory Data (last 24 hrs) 04/12/20 14:58: PT 11.6, INR 0.98 04/12/20 14:58: WBC 10.0, Hgb 11.4 L, Hct 34.5 L, Plt Count 296 04/12/20 14:58: Sodium 146 H, Potassium 3.6, BUN 21 H, Creatinine 0.90, Glucose 87, Magnesium 2.0, Total Bilirubin 0.3, AST 14 L, ALT 17, Alkaline Phosphatase 87 Assessment and Plan - Advance Directives Does patient have a Living Will: Yes Does patient have a Durable POA for Healthcare: Yes Physician Review Additional Text: UTI AMS Dementia Anemia GERD h/o ulcerative colitis -admit for IV antibiotics for UTI- start rocephin, IVF -UTI likely causing AMS, CT brain negative -swallow eval given confusion / AMS, NPO until then -will likely need continued restraints for now -follow cultures -obtain home medications and restart as appropriate -will discuss with family VTE: lovenox Code: DNR Dispo: anticipate dc back to SNF in ~48hrs Time Spent Managing Pts Care (In Minutes): 35
[2020-04-12 21:10] VITALS: BMI 24.7
[2020-04-12] MEDS: NA CHLORIDE 0.9% 1,000 ML IV SCH (21:26)
[2020-04-12] MEDS ORDERED: NA CHLORIDE 0.9% 1,000 ML ONE (21:28)
[2020-04-13 04:39] LABS: Absolute Lymphocytes (CBC) 1.1 K/uL (0.7-4.9); Basophils % 0.6 % (0-1.3); Hematocrit 32.1 % (36.0-45.0); Lymphocytes % 14.2 % (15.3-44.8); MPV 9.2 fL (7.6-11.3); RBC Red Blood Cell Count 3.61 M/uL (3.86-4.86)
[2020-04-13 05:02] LABS: Albumin 2.8 g/dL (3.4-5.0); Bilirubin Total 0.5 mg/dL (0.2-1.0); Potassium 3.9 mmol/L (3.5-5.1); Protein, Total 5.9 g/dL (6.4-8.2)
[2020-04-13 05:15] LABS: Protime INR 1.03
[2020-04-13] MEDS: PANTOPRAZOLE 40MG TABLET PO SCH (07:00)
[2020-04-13] MEDS: FERROUS SULFATE 325 MG TAB PO SCH ×2 (08:00→16:46)
[2020-04-13] MEDS: predniSONE 20 MG TAB PO SCH (08:00)
[2020-04-13] MEDS: MESALAMINE 400 MG CAPSULE.DR PO SCH ×3 (08:35→22:08)
[2020-04-13] MEDS ORDERED: ENOXAPARIN 40 MG/0.4 ML SQ SCH (09:00)
[2020-04-13] MEDS ORDERED: CEFTRIAXONE 1 GM/NS 50 ML 1 GM/50 ML BAG IV SCH (09:00)
[2020-04-13] MEDS: NA CHLORIDE 0.9% 1,000 ML IV SCH ×2 (09:10→22:08)
--- NOTE | 2020-04-13 15:52 | P.PN ---
Subjective Date of Service: 04/13/20 Chief Complaint: UTI, AMS Subjective: No new changes (no acute events overnight. patient remains confused, but pleasant without complaints this morning) Review of Systems 10-point ROS is otherwise unremarkable Physical Examination - Vital Signs Temperature: 97.5 F Blood Pressure: 137/81 Pulse: 63 Respirations: 19 Pulse Ox (%): 97 - Physical Exam General: Alert, In no apparent distress, Oriented x1 HEENT: Sclerae nonicteric Respiratory: Clear to auscultation bilaterally Cardiovascular: No edema, Regular rate/rhythm Gastrointestinal: Soft and benign, Non-distended, No tenderness Musculoskeletal: No tenderness Neurological: Normal speech Assessment & Plan Physician Review Additional Text: UTI AMS Dementia Anemia GERD h/o ulcerative colitis -still with confusion, will discuss with family, reportedly pt's baseline is AAOx1 -UTI likely causing AMS, CT brain negative -unable to follow commands for bedside swallow, will try again when improves -pleasantly demented and confused, no longer needing restraints -follow cultures - GNR 3+ so far VTE: SCDs, avoiding lovenox with h/o UC and GI bleed Code: DNR Dispo: anticipate dc back to SNF in 24-48hrs Time Spent Managing Pts Care (In Minutes): 35
[2020-04-13] MEDS ORDERED: CEFTRIAXONE/SWI 1gm 1 GM/10 ML SYR IV SCH (18:00)
--- NOTE | 2020-04-13 18:07 | EKG ---
Test Date: 2020-04-12 Test Time: 12:56:24 Chemistry Faculty Member: BURTON MEASUREMENT RESULTS: Intervals: Rate: 94 SC: 144 QRSD: 80 QT: 358 QTc: 447 [place]: P: 52 SC: 144 QRS: -5 T: 28 INTERPRETIVE STATEMENTS: Normal sinus rhythm Cannot rule out Anterior infarct, age undetermined Abnormal ECG Compared to ECG 04/28/2019 09:36:59 Atrial premature complex(es) no longer present Myocardial infarct finding still present Electronically Signed On 04-13-20 18:02:51 STORE KEEPER by Eugenio Smallwood
[2020-04-14] MEDS: PANTOPRAZOLE 40MG TABLET PO SCH (05:28)
[2020-04-14 05:58] LABS: Hematocrit 33.8 % (36.0-45.0); MPV 9.1 fL (7.6-11.3); RBC Red Blood Cell Count 3.82 M/uL (3.86-4.86)
[2020-04-14 06:34] LABS: Potassium 3.9 mmol/L (3.5-5.1)
[2020-04-14] MEDS: predniSONE 20 MG TAB PO SCH (08:20)
[2020-04-14] MEDS: FERROUS SULFATE 325 MG TAB PO SCH ×2 (08:20→16:23)
[2020-04-14] MEDS: MESALAMINE 400 MG CAPSULE.DR PO SCH ×3 (08:20→21:25)
[2020-04-14] MEDS: NA CHLORIDE 0.9% 1,000 ML IV SCH ×2 (08:21→22:42)
[2020-04-14] MEDS ORDERED: POTASSIUM CL SA 10 MEQ TAB PO ONE (09:00)
--- NOTE | 2020-04-14 18:34 | P.PN ---
Subjective Date of Service: 04/14/20 Chief Complaint: UTI, AMS Subjective: Improving (Seems more comfortable, more alert, remains confused and not oriented) Review of Systems is unable to be obtained Physical Examination - Vital Signs Temperature: 97.6 F Blood Pressure: 135/81 Pulse: 76 Respirations: 16 Pulse Ox (%): 94 - Physical Exam General: In no apparent distress, Disheveled, Demented, Confused HEENT: Mucous membr. moist/pink, Sclerae nonicteric Respiratory: Clear to auscultation bilaterally Cardiovascular: No edema, Regular rate/rhythm Gastrointestinal: Soft and benign, Non-distended, No tenderness Integumentary: No rashes Neurological: Abnormal speech (Difficult to understand at times, not making se nse at times) Assessment & Plan Physician Review Additional Text: UTI AMS / acute metabolic encephalopathy secondary to UTI Dementia Anemia GERD h/o ulcerative colitis -still with confusion, reportedly pt's baseline is AAOx1 -in no apparent distress, vitals stable, afebrile x 24 hr -UTI likely causing AMS, CT brain negative, seems to be improving -tolerating diet without any issues -pleasantly demented and confused -follow cultures - E. coli, will deescalate to Augmentin VTE: SCDs, avoiding lovenox with h/o UC and GI bleed Code: DNR Dispo: anticipate dc back to SNF tomorrow, assuming improvement of mentation Time Spent Managing Pts Care (In Minutes): 35
[2020-04-14] MEDS: AMOX/K CLAV 875 MG TAB PO SCH (21:25)
[2020-04-15] MEDS: PANTOPRAZOLE 40MG TABLET PO SCH (06:01)
[2020-04-15 06:11] LABS: Potassium 3.9 mmol/L (3.5-5.1)
[2020-04-15] MEDS ORDERED: POTASSIUM CL SA 10 MEQ TAB PO ONE (09:00)
[2020-04-15] MEDS: AMOX/K CLAV 875 MG TAB PO SCH (09:22)
[2020-04-15] MEDS: predniSONE 20 MG TAB PO SCH (09:22)
[2020-04-15] MEDS: MESALAMINE 400 MG CAPSULE.DR PO SCH ×2 (09:22→14:55)
[2020-04-15] MEDS: FERROUS SULFATE 325 MG TAB PO SCH (09:22)
[2020-04-15] MEDS: NA CHLORIDE 0.9% 1,000 ML IV SCH (11:16)
[2020-04-15 11:46] VITALS: O2SAT 96
[2020-04-15 14:07] VITALS: BP 121/61; TEMP 97
--- NOTE | 2020-04-15 21:00 | P.DS ---
Admission Date: 04/12/20 Discharge Date: 04/15/20 Disposition: TRANSFER TO [facility]LTER Discharge Condition: GOOD Reason for Admission: UTI, AMS Procedures: CT Head (04/12):No acute intracranial abnormality is seen. If patient's symptoms persist MRI of the brain would be recommended. CXR (04/12): No acute abnormalities displayed Problem List UTI, cystitis AMS / acute metabolic encephalopathy secondary to UTI Dementia Anemia GERD h/o ulcerative colitis Brief History of Present Illness: 79yo female sent to ED From senior care due to altered mental status / lethar gy. She was found to have UTI on workup in ED. Hospital Course: She was initially very confused and pulled out her IV's. As her hospitalization went on, she continued to improve and seemingly back to her baseline at time of discharge. Urine culture revealed e.coli and she was discharged back to her senior care to complete a course of Augmentin. Vital Signs/Physical Exam: Temp Pulse Resp BP Pulse Ox 97 F 62 17 121/61 96 04/15/20 12:00 04/15/20 12:00 04/15/20 12:00 04/15/20 12:00 04/15/20 12:00 General: Alert, In no apparent distress, Oriented x1, Confused HEENT: Mucous membr. moist/pink, Sclerae nonicteric Respiratory: Clear to auscultation bilaterally Cardiovascular: No edema, Regular rate/rhythm Gastrointestinal: Soft and benign, Non-distended, No tenderness Musculoskeletal: No tenderness Integumentary: No rashes Neurological: Dementia Laboratory Data at Discharge: WBC 7.7 K/uL (4.3-10.9) 04/14/20 05:24 Hgb 11.3 g/dL (12.0-15.0) L 04/14/20 05:24 Hct 33.8 % (36.0-45.0) L 04/14/20 05:24 Plt Count 262 K/uL (152-406) 04/14/20 05:24 PT 12.2 SECONDS (9.5-12.5) 04/13/20 04:27 INR 1.03 04/13/20 04:27 Sodium 144 mmol/L (136-145) 04/15/20 05:29 Potassium 3.9 mmol/L (3.5-5.1) 04/15/20 05:29 BUN 14 mg/dL (7-18) 04/15/20 05:29 Creatinine 0.91 mg/dL (0.55-1.3) 04/15/20 05:29 Glucose 72 mg/dL (74-106) L 04/15/20 05:29 Phosphorus 2.9 mg/dL (2.5-4.9) 04/14/20 05:24 Magnesium 2.0 mg/dL (1.8-2.4) 04/13/20 04:27 Total Bilirubin 0.5 mg/dL (0.2-1.0) 04/13/20 04:27 AST 17 U/L (15-37) 04/13/20 04:27 ALT 16 U/L (12-78) 04/13/20 04:27 Alkaline Phosphatase 75 U/L (45-117) 04/13/20 04:27 Home Medications: Alendronate Sodium 70 mg PO EVERY 7TH DAY 04/12/20 Ferrous Sulfate [Ferrous Sulfate*] 325 mg PO BID 04/12/20 Mesalamine [Delzicol] 800 mg PO TID 04/12/20 Multivitamin 1 tab PO DAILY 04/12/20 Omeprazole 20 mg PO DAILY 04/12/20 predniSONE [Prednisone*] 10 mg PO DAILY 04/12/20 Amox/Clavulanate [Augmentin 875-125 Tab*] 875 mg PO BID 10 Days #20 tab 04/15/20 New Medications: Amox/Clavulanate [Augmentin 875-125 Tab*] 875 mg PO BID 10 Days #20 tab Patient Discharge Instructions: Follow up with PCP within 1 week. Medication on discharge: Augmentin 875mg tablet twice a day for 10 days Diet: Regular Activity: Fall precautions Followup: NONE,NONE [Primary Care Provider] - Time spent managing pt's care (in minutes): 35
== END 2020-04-15 16:17 | DRG 689 ==
LOC: ER 10:45 → ERHOLD 16:26 → 2ND 04-13 08:17
PROVIDERS: ADMIT Hospitalist; ATTEND Hospitalist
DX: N39.0 Urinary tract infection, site not specified (principal); G93.41 Metabolic encephalopathy; K21.9 Gastro-esophageal reflux disease without esophagitis; F03.90 Unspecified dementia, unspecified severity, without behavioral disturbance, psychotic disturbance, mood disturbance, and anxiety; D64.9 Anemia, unspecified; B96.20 Unspecified Escherichia coli [E. coli] as the cause of diseases classified elsewhere; Z79.899 Other long term (current) drug therapy; Z88.1 Allergy status to other antibiotic agents; Z66 Do not resuscitate; Z79.52 Long term (current) use of systemic steroids; Z20.828 Contact with and (suspected) exposure to other viral communicable diseases
CPT/HCPCS: 36415; 70450; 71045; 80048; 80053; 80076; 81003; 82947; 83735; 83880; 84100; 84484; 85025; 85027; 85610; 87077; 87086; 87088; 87186; 93005; 94760; 96361; 96365; 97110; 97161; 97530; 99285; J0696; J7030; J7040; J7512; U0002

== ENCOUNTER 2021-12-11 12:17 | Observation (INO) | payer OTHER ==
[2021-12-11] MEDS ORDERED: NA CHLORIDE 0.9% 1,000 ML ONE ×3 (12:44→20:01)
[2021-12-11 13:06] LABS: MCV 90.1 fL (80-100); MPV 9.5 fL (7.6-11.3)
[2021-12-11 13:10] LABS: Absolute Lymphocytes (CBC) 0.7 K/uL (0.7-4.9); Hematocrit 42.8 % (36.0-45.0); Lymphocytes % 3.2 % (15.3-44.8); RBC Red Blood Cell Count 4.75 M/uL (3.86-4.86)
[2021-12-11 13:12] LABS: Protime INR 1.12
[2021-12-11 13:25] LABS: Albumin 3.5 g/dL (3.4-5.0); Bilirubin Total 0.4 mg/dL (0.2-1.0); Protein, Total 8.7 g/dL (6.4-8.2)
[2021-12-11 13:40] LABS: Blood Morphology Comment NOT SEEN (NOT SEEN); Platelet Estimate ADEQ; Platelets, Giant FEW PRESENT
--- NOTE | 2021-12-11 14:23 | RAD REPORT ---
EXAM DESCRIPTION: US - Extrem Venous W Compress Neal - 12/11/2021 2:09 pm CLINICAL HISTORY: SWELLING COMPARISON: None. TECHNIQUE: Real-time sonographic evaluation of the bilateral lower extremity common femoral, superfi cial femoral, popliteal and posterior tibial veins was performed. FINDINGS: Patient in contracted state which limits evaluation. Normal compressibility, flow augmentation, phasic flow and spontaneous flow are identified in the rig ht lower extremity common femoral, superficial femoral, popliteal and posterior tibial veins. No intr aluminal filling defects seen. The superficial greater saphenous vein to the popliteal fossa level sh ows echogenic thrombus filling the lumen. This thrombus extends into the calf. Low-level echogenicity thrombus is present filling the left common femoral vein with limited or absen t compression. Thrombus is present filling and distending the left greater saphenous vein from groin distally to the calf. Hypoechoic thrombus is present in the left superficial femoral vein and continu es into the left popliteal vein. IMPRESSION: Acute deep venous thrombosis is present in the left common femoral, superficial and popl iteal deep veins. No deep venous thrombosis in the right lower extremity. Extensive superficial venous thrombosis. The left greater saphenous vein is clotted from groin to delia f with the right greater saphenous vein clotted from the knee into the calf.
--- NOTE | 2021-12-11 14:25 | RAD REPORT ---
EXAM DESCRIPTION: US - Lower Extremity Arterial Bilat - 12/11/2021 2:09 pm CLINICAL HISTORY: cyanosis COMPARISON: None. TECHNIQUE: Doppler evaluation of the bilateral lower extremity arterial tree performed. Waveforms we re obtained along the length of each lower extremity. Visual inspection of the lower extremity arteri al tree performed. FINDINGS: Exam is limited by the contracted state of the patient. Triphasic waveform patterns are id entified in the bilateral common femoral, superficial femoral and popliteal arteries. No occlusion or focal flow restricting lesion within these vessels. Triphasic waveform pattern seen in the left posterior tibial and dorsalis pedis arteries. No blood flow could be demonstrated in the right posterior tibial or dorsalis pedis arteries. IMPRESSION: No blood flow identifiable in the right posterior tibial or dorsalis pedis arteries.
--- NOTE | 2021-12-11 14:48 | EDPHYS ---
Physician Documentation [facility] Name: Sarika Gasca Age: 81 yrs Sex: Female : 1940 Arrival Date: 12/11/2021 Time: 12:22 Bed 27 Private MD: ED Physician Jose Damon HPI: 12/11 13:34 This 81 yrs old Female presents to ER via EMS with complaints of AMS, hypotension. rn 13:34 The patient presents with decreased responsiveness. Onset: The symptoms/episode rn began/occurred at an unknown time. Possible causes: unknown. Associated signs and symptoms: Pertinent positives: confusion, Pertinent negatives: vomiting. Current symptoms: In the emergency department the patient's symptoms are unchanged from the initial presentation. It is unknown whether or not the patient has had similar symptoms in the past. EMS reports decreased responsiveness, unknown onset, + recent COVID but details unknown at this point. EMS also report hypotension, given 250cc bolus prior to arrival with some improvement. . Historical: - Allergies: 12:27 metronidazole; jh6 - PMHx: 12:27 ulcerative colitis; Rectal bleed; Osteoporosis; GERD; Dementia; Anemia; jh6 - Immunization history:: Adult Immunizations up to date. - Social history:: Smoking status: unknown. - Family history:: not pertinent. - Hospitalizations: : No recent hospitalization is reported. ROS: 13:34 Unable to obtain ROS due to altered mental status. rn Exam: 13:34 Constitutional: This is a well developed, well nourished patient who is somnolent, rn awakens to voice but does not speak or answer questions Head/Face: Normocephalic, atraumatic. ENT: dry MM Cardiovascular: Tachycardic, regular Respiratory: No increased work of breathing, no retractions or nasal flaring. Abdomen/GI: soft, non-tender, non-distended Skin: Cool, dry, + cyanosis of both feet MS/ Extremity: Cool extremities with weak peripheral pulses. Cyanosis of both feet, no gangrene or open wounds. Neuro: Somnolent, awakens to voice, does not follow commands or answer questions, tracks with eyes. Vital Signs: 12:22 BP 107 / 83; Pulse 121; Resp 18; Temp 97.7(TE); Pulse Ox 97% on R/A; Weight 66.68 kg; jh6 Height 5 ft. 7 in. (170.18 cm); Pain 0/10; 15:00 BP 123 / 92; Pulse 86; Resp 13; Pulse Ox 95% ; jl7 16:00 BP 121 / 97; Pulse 93; Resp 15; Pulse Ox 97% ; jl7 17:00 BP 123 / 89; Pulse 95; Resp 14; Pulse Ox 98% ; jl7 18:00 BP 129 / 94; Pulse 89; Resp 14; Pulse Ox 97% ; jl7 18:30 BP 130 / 85; Pulse 95; Resp 13; Pulse Ox 98% ; jl7 12:22 Body Mass Index 23.02 (66.68 kg, 170.18 cm) [facility] MDM: 12:22 Patient medically screened. rn 14:45 Differential Diagnosis: electrolyte abnormality, pneumonia, sepsis, UTI, volume rn depletion, DVT, arterial occlusion. Data reviewed: vital signs, nurses notes, lab test result(s), radiologic studies, ultrasound, and as a result, I will admit patient. Counseling: I had a detailed discussion with the patient and/or guardian regarding: the historical points, exam findings, and any diagnostic results supporting the discharge/admit diagnosis, lab results, radiology results, the need to transfer to another facility, for higher level of care, [facility] does not immediately have the required specialist. Admission orders: after a detailed discussion of the patient's condition and case, the admit orders are written by me. 15:00 ED course: notified of extensive DVT LLE and arterial occlusion RLE, along with record label internship renal failure. Recommended transfer for further treatment and vascular consult, declines transfer and requests patient placed on hospice. Asked me to speak with Dr. Del Valle, who states hasn't seen her in 4 years, will call hospitalist for further recs. . 15:21 ED course: Spoke with Dr. Nicolas, is getting hold of case management for international first officer evaluation. If can organize from ER, will do, otherwise will admit.. 15:28 ED course: Case management unable to consult in ER, Dr. Nicolas going to admit.. rn 15:29 ED course: No source of possible infection identified. Waiting on urine, patient rn catheterized but no urine present, will give more fluids and reassess. . 12/11 12:29 Order name: Blood Culture Adult (2) rn 07/11 12:29 Order name: CBC with Diff; Complete Time: 14:42 rn 12/11 12:29 Order name: CMP; Complete Time: 13:33 rn 12/11 12:29 Order name: Lactate; Complete Time: 13:33 rn 12/11 12:29 Order name: Protime (+inr); Complete Time: 13:24 12/11 12:29 Order name: Ptt, Activated; Complete Time: 13:24 rn 12/11 12:27 Order name: Extrem Venous W Compression Neal US; Complete Time: 14:42 rn 12/11 12:29 Order name: Urine Culture rn 12/11 12:29 Order name: Urine Microscopic Only rn 12/11 12:29 Order name: SARS-COV-2 RT PCR (Document "Date of Onset" if Symptomatic) 12/11 13:03 Order name: Glucose, Ancillary Testing; Complete Time: 13:24 [facility] 12/11 13:41 Order name: Manual Differential; Complete Time: 14:42 [facility] 12/11 18:19 Order name: Lactate Sepsis 2 HR Follow-up; Complete Time: 18:36 [facility] 12/11 23:32 Order name: PTT, Activated Partial Thromb EDTX 12/11 12:27 Order name: Lower Extremity Arterial Bilat US; Complete Time: 14:42 rn 12/11 12:29 Order name: Chest Single View XRAY; Complete Time: 14:55 rn 12/11 12:29 Order name: Accucheck; Complete Time: 12:57 rn 12/11 12:29 Order name: Cardiac monitoring; Complete Time: 12:33 rn 12/11 12:29 Order name: Cath; Complete Time: 19:20 rn 12/11 12:29 Order name: EKG - Nurse/Tech; Complete Time: 19:20 rn 12/11 12:29 Order name: IV Saline Lock - Large Bore; Complete Time: 12:56 rn 12/11 12:29 Order name: Labs collected and sent; Complete Time: 12:56 rn 12/11 12:29 Order name: O2 Per Protocol; Complete Time: 12:56 12/11 12:29 Order name: O2 Sat Monitoring; Complete Time: 12:33 rn 12/11 15:38 Order name: Case Management Consult [facility] 12/11 15:38 Order name: NPO [facility] 12/11 12:29 Order name: Urine Dipstick-Ancillary (obtain specimen); Complete Time: 19:20 rn Administered Medications: 12:52 Drug: NS 0.9% 1000 ml Route: IV; Rate: 1000 ml; Site: left forearm; jl7 14:00 Follow up: Response: No adverse reaction; IV Status: Completed infusion; IV Intake: jl7 1000ml 15:33 Drug: NS 0.9% 1000 ml Route: IV; Rate: 1000 ml; Site: left forearm; 1 17:00 Follow up: Response: No adverse reaction; IV Status: Completed infusion; IV Intake: jl7 1000ml 18:57 Drug: Heparin (DVT/PE Drip) 18 units/kg/hr - (HEParin 37445 units, D5W 500 ml) jh6 {Co-Signature: zulema (Lori Patel RN).} Route: IV; Rate: calculated rate; Site: left forearm; 19:16 Follow up: IV Status: Infusion continued upon admission jl7 19:04 Drug: Heparin (DVT/PE- Bolus per protocol) - HEParin 80 units/kg {Co-Signature: zulema gu (Lori Patel RN).} Route: IVP; Site: left wrist; 19:16 Follow up: Response: No adverse reaction jl Disposition Summary: 12/11/21 15:22 Hospitalization Ordered Hospitalization Status: Inpatient Admission rn Provider: Virginia Nicolas rn Condition: Stable(12/11/21 15:22) rn Problem: new(12/11/21 15:22) rn Symptoms: are unchanged(12/11/21 15:22) rn Bed/Room Type: Standard rn Location: Telemetry/MedSurg (Inpatient)(12/12/21 08:04) kj1 Room Assignment: 427(12/12/21 08:04) kj1 Diagnosis - Altered mental status, unspecified(12/11/21 15:22) rn - Acute kidney failure, unspecified rn - Acute embolism and thrombosis of unspecified deep veins of left lower rn extremity(12/11/21 15:22) - Acute arterial occlusion of right foot rn Forms: - Medication Reconciliation Form rn - SBAR form rn Signatures: Dispatcher [facility] Jose Damon MD MD rn Garcia, Cindy, RN RN cg Leal, Jahala, RN RN jl7 Jackson, Rhona kj1 Madelin Carrasquillo RN RN jh6 Ileana Aragon tp1 Lori Patel RN jl7 Corrections: (The following items were deleted from the chart) 15: 14:47 rn rn 15: 14:47 [facility] rn rn 15: 14:47 Higher level of care rn rn 15: 14:47 Stable rn rn 15: 14:47 new rn rn 15: 14:47 have improved rn rn 15: 14:47 Altered mental status, unspecified rn rn 15: 14:47 Acute embolism and thrombosis of unspecified deep veins of left lower extremity rnrn 15: 14:47 Acute arterial occlusion RLE rn rn 21:12 15:22 rn cg 21:40 21:12 231 cg cg 21:43 15:22 Telemetry/MedSurg (Inpatient) rn cg 21:43 21:40 cg cg 12/12 08:04 12/11 21:43 [facility] [[email or web address] ER HOLD cg kj1 12/12 08:04 12/11 21:43 ERHOLD- cg kj1
--- NOTE | 2021-12-11 14:48 | ER ---
Nurse's Notes [facility] Name: Sarika Gasca Age: 81 yrs Sex: Female : 1940 Arrival Date: 12/11/2021 Time: 12:22 Bed 27 Private MD: Diagnosis: Altered mental status, unspecified;Acute kidney failure, unspecified;Acute embolism and thrombosis of unspecified deep veins of left lower extremity;Acute arterial occlusion of right foot Presentation: 12/11 12:22 Chief complaint: EMS states: N/[facility] called for pt being more alerted then normal with 6 hypotension. Coronavirus screen: Vaccine status: Patient reports receiving the 2nd dose of the covid vaccine. Ebola Screen: Patient negative for fever greater than or equal to 101.5 degrees Fahrenheit, and additional compatible Ebola Virus Disease symptoms Patient denies exposure to infectious person. Patient denies travel to an Ebola-affected area in the 21 days before illness onset. Initial Sepsis Screen: Does the patient meet any 2 criteria? No. Patient's initial sepsis screen is negative. Does the patient have a suspected source of infection? No. Patient's initial sepsis screen is negative. Risk Assessment: Do you want to hurt yourself or someone else? Patient reports no desire to harm self or others. Unable to obtain. Onset of symptoms was December 11, 2021. 12:22 Method Of Arrival: EMS: [facility] 12:22 Acuity: ARIC 2 [facility] Historical: - Allergies: 12:27 metronidazole; jh6 - PMHx: 12:27 ulcerative colitis; Rectal bleed; Osteoporosis; GERD; Dementia; Anemia; [facility] - Immunization history:: Adult Immunizations up to date. - Social history:: Smoking status: unknown. - Family history:: not pertinent. - Hospitalizations: : No recent hospitalization is reported. Screenin:28 Abuse screen: Denies threats or abuse. Denies injuries from another. Nutritional [facility] screening: not eating well over the last week. . Tuberculosis screening: No symptoms or risk factors identified. Fall Risk Secondary diagnosis (15 points) CVA, IV access (20 points). Assessment: 12:30 General: Appears in no apparent distress. Behavior is listless. Pain: Denies pain. 6 Neuro: Level of Consciousness is lethargic, Oriented to none Pupils are PERRLA. 12:30 General: NH reports that pt is no as responsive as her "normal" self. Cardiovascular: jh6 No deficits noted. Respiratory: No deficits noted. GI: Abdomen is flat, Bowel sounds present X 4 quads. Abd is soft and non tender X 4 quads. : No deficits noted. 14:00 Reassessment: No changes from previously documented assessment. noted bilat lower ext jh6 discoloration and appeared purple and cool to touch. provider ordering doppler bilat lower ext. 15:00 Reassessment: Patient and/or family updated on plan of care and expected duration. Pain jh6 level reassessed. pt when attempted to straight cath was unable to get sample. provider ordering more iv fluids and ok to place pure wick. pt will open eyes to tactile stimulation and when cleaning marcus area. 16:00 Reassessment: Patient and/or family updated on plan of care and expected duration. Pain jh6 level reassessed. spouse not wanting to transfer pt for further treatment of dvt to lower ext. spouse is requesting Hospice but pts pcp stated that he has not seen her in over a year and is unable to approve that. spouse agreeable to admit pt and allow for heparin to be started here and eval for Hospice after admitted. 17:00 Reassessment: No changes from previously documented assessment. pt cleaned again, no jh6 urine output as of yet with second liter of fluid started. 18:30 Reassessment: No changes from previously documented assessment. pt moved to hospital jh6 bed, spouse at bedside and when spouse poke to pt, pt did smile and attempt to speak. Vital Signs: 12:22 BP 107 / 83; Pulse 121; Resp 18; Temp 97.7(TE); Pulse Ox 97% on R/A; Weight 66.68 kg; jh6 Height 5 ft. 7 in. (170.18 cm); Pain 0/10; 15:00 BP 123 / 92; Pulse 86; Resp 13; Pulse Ox 95% ; jl7 16:00 BP 121 / 97; Pulse 93; Resp 15; Pulse Ox 97% ; jl7 17:00 BP 123 / 89; Pulse 95; Resp 14; Pulse Ox 98% ; jl7 18:00 BP 129 / 94; Pulse 89; Resp 14; Pulse Ox 97% ; jl7 18:30 BP 130 / 85; Pulse 95; Resp 13; Pulse Ox 98% ; jl7 12:22 Body Mass Index 23.02 (66.68 kg, 170.18 cm) 6 ED Course: 12:22 Patient arrived in ED. [facility] 12:22 Jose Damon MD is Attending Physician. rn 12:22 Madelin Carrasquillo, BRYN is Primary Nurse. [facility] 12:27 Triage completed. 6 12:28 Arm band placed on right wrist. Patient placed in the treatment room, on a stretcher, 6 on oxygen, on laboratory monitor, on pulse oximetry. 12:29 No provider procedures requiring assistance completed. Inserted saline lock: 20 gauge [facility] in left antecubital area, using aseptic technique. 12:30 Patient has correct armband on for positive identification. Bed in low position. Call [facility] light in reach. Side rails up X2. 12:30 Patient admitted, IV remains in place. intact, No redness/swelling at site. 7 12:57 Initial lab(s) drawn, by tx, sent to lab. Inserted saline lock: 22 gauge in right jl7 wrist, using aseptic technique. Blood collected. 14:10 Extrem Venous W Compression Neal US In Process Unspecified. EDMS 14:10 Lower Extremity Arterial Bilat US In Process Unspecified. EDMS 14:39 Chest Single View XRAY In Process Unspecified. EDMS 15:13 Client placed on continuous cardiac and pulse oximetry monitoring. NIBP monitoring tp1 applied. 15:[address] tp1 15:21 Virginia Nicolas MD is Hospitalizing Provider. rn Administered Medications: 12:52 Drug: NS 0.9% 1000 ml Route: IV; Rate: 1000 ml; Site: left forearm; jl7 14:00 Follow up: Response: No adverse reaction; IV Status: Completed infusion; IV Intake: jl7 1000ml 15:33 Drug: NS 0.9% 1000 ml Route: IV; Rate: 1000 ml; Site: left forearm; tp1 17:00 Follow up: Response: No adverse reaction; IV Status: Completed infusion; IV Intake: jl7 1000ml 18:57 Drug: Heparin (DVT/PE Drip) 18 units/kg/hr - (HEParin 19683 units, D5W 500 ml) [facility] {Co-Signature: [facility] (Lori Patel RN).} Route: IV; Rate: calculated rate; Site: left forearm; 19:16 Follow up: IV Status: Infusion continued upon admission jl7 19:04 Drug: Heparin (DVT/PE- Bolus per protocol) - HEParin 80 units/kg {Co-Signature: zulema gu (Lori Patel RN).} Route: IVP; Site: left wrist; 19:16 Follow up: Response: No adverse reaction jl7 Intake: 14:00 IV: 1000ml; Total: 1000ml. jl7 17:00 IV: 1000ml; Total: 2000ml. jl7 Outcome: 14:47 ER care complete, transfer ordered by MD. rn 15:22 Decision to Hospitalize by Provider. rn 12/12 08:32 Patient left the ED. ss Signatures: Dispatcher [employer] EDMS Jose Damon MD MD rn Smirch, Shelby RN RN Lori Lowery RN RN jl7 Madelin Carrasquillo RN RN jh6 Ileana Aragon tp1 Lori beasley7 Corrections: (The following items were deleted from the chart) 12/11 19:30 16:00 Reassessment: Patient and/or family updated on plan of care and expected jh6 duration. Pain level reassessed. jh6
--- NOTE | 2021-12-11 14:51 | RAD REPORT ---
EXAM DESCRIPTION: RAD - Chest Single View - 12/11/2021 2:38 pm CLINICAL HISTORY: AMS, COVID COMPARISON: Portable April 2020 TECHNIQUE: AP portable chest image was obtained 12/11/2021 2:38 pm . FINDINGS: No focal consolidation or mass. No COVID-19 pneumonia finding seen that were commonly pres ent early in the pandemic. Patient has chronic interstitial lung disease matches comparison. Heart an d vasculature are normal. No measurable pleural effusion and no pneumothorax. No acute bony abnormali ty seen. No acute aortic findings suspected. IMPRESSION: Chronic interstitial lung pattern similar to comparison. No focal process identifiable.
[2021-12-11] MEDS ORDERED: MORPHINE 2 MG/ML SYR IV PRN (15:34)
[2021-12-11] MEDS ORDERED: ONDANSETRON 4 MG/2 ML VIAL IV PRN (15:34)
[2021-12-11] MEDS ORDERED: HEPARIN/D5W 25,000 UNIT/500 ML BAG IV ONE (19:03)
[2021-12-11] MEDS ORDERED: HEPARIN 5000 UNIT/ML 1 ML VIAL ONE (19:03)
[2021-12-11 20:10] VITALS: O2SAT 99; BMI 22.0
[2021-12-11] MEDS: NA CHLORIDE 0.9% 1,000 ML IV SCH (20:25)
--- NOTE | 2021-12-11 22:32 | P.HP ---
Certification for Inpatient Patient admitted to: Observation With expected LOS: <2 Midnights Patient will require the following post-hospital care: None Practitioner: I am a practitioner with admitting privileges, knowledge of patient current condition, hospital course, and medical plan of care. Services: Services provided to patient in accordance with Admission requirements found in Title 42 Section 412.3 of the Code of Federal Regulations Patient History Date of Service: 12/11/21 Reason for admission: palliative care placement History of Present Illness: patient is an 81-year-old female with advanced dementia who presents to the hospital with sinuses of the leg. She also has swelling of the lower extremity. She recently recovered from COVID - 19 pneumonia. However, she has become very debilitated. She is not eating or drinking. The [facility] sent her to the emergency room with acute renal failure. She was severely dehydrated. She also has peripheral arterial disease. She has cyanosis of the leg. She also has a DVT. Patient's who is her medical power of paint maker states that the patient has a do not attempt resuscitation in her living well and she does not want any heroic measures. He does not want her to get transferred for surgery. He is requesting hospice care. Patient will be a DNAR and we will set her up for inpatient hospice. Allergies No Known Allergies Allergy (Verified 06/30/18 18:30) Home Medications: Alendronate Sodium 70 mg PO EVERY 7TH DAY 04/12/20 Ferrous Sulfate [Ferrous Sulfate*] 325 mg PO BID 04/12/20 Mesalamine [Delzicol] 800 mg PO TID 04/12/20 Multivitamin 1 tab PO DAILY 04/12/20 Omeprazole 20 mg PO DAILY 04/12/20 predniSONE [Prednisone*] 10 mg PO DAILY 04/12/20 Amox/Clavulanate [Augmentin 875-125 Tab*] 875 mg PO BID 10 Days #20 tab 04/15/20 - Past Medical/Surgical History Has patient received pneumonia vaccine in the past: Yes Diabetic: No -: Dementia -: Iron deficiency anemia -: Ulceratice colitis -: Osteoporosis -: Osteoarthritis -: Atrial fibrillation -: Right arm surgery -: Fractured pelvis surgery -: D&C -: a-fib Psychosocial/ Personal History: Patient is and lives with her , she has 2 children, she does not work. - Family History Father Medical History: Hypertension - Social History Smoking Status: Never smoker Alcohol use: No CD- Drugs: No Caffeine use: No Place of Residence: [facility] Review of Systems is unable to be obtained Physical Examination - Vital Signs Temperature: 97.6 F Blood Pressure: 113/84 Pulse: 96 Respirations: 15 Pulse Ox (%): 99 - Physical Exam General: Delirious, Unresponsive HEENT: Atraumatic, PERRLA, Mucous membr. moist/pink, EOMI, Sclerae nonicteric Neck: Supple, 2+ carotid pulse no bruit, No LAD, Without JVD or thyroid abnormality Respiratory: Clear to auscultation bilaterally, Normal air movement Cardiovascular: Regular rate/rhythm, Normal S1 S2 Gastrointestinal: Normal bowel sounds, No tenderness Musculoskeletal: Swelling Integumentary: Cyanosis Neurological: Sensation intact, Cranial nerves 3-12 intact, Abnormal strength Lymphatics: No axilla or inguinal lymphadenopathy - Studies Laboratory Data (last 24 hrs) 12/11/21 12:53: PT 12.4, INR 1.12, APTT 29.5 12/11/21 12:53: Sodium 145, Potassium 5.0, BUN 73 H D, Creatinine 5.31 H* D, Glucose 119 H, Total Bilirubin 0.4, AST 64 H, ALT 44, Alkaline Phosphatase 120 H 12/11/21 12:53: WBC 20.8 H* D, Hgb 13.8, Hct 42.8, Plt Count 297 D Assessment & Plan - Problems (Diagnosis) (1) PAD (peripheral artery disease) Current Visit: Yes Status: Acute (2) Atrial fibrillation Onset Date: 08/17/16 Current Visit: No Status: Chronic Qualifiers: (3) Dementia Current Visit: No Status: Chronic Qualifiers: - Plan Spoke with patient's who is medical power of paint maker for this [place] who has advanced dementia. He is wanting to proceed with hospice care. Spoke with case maker and they will try to get this set up in the morning. - Advance Directives Does patient have a Living Will: No Does patient have a Durable POA for Healthcare: No
[2021-12-11] MEDS ORDERED: HEPARIN/D5W 25,000 UNIT/500 ML BAG IV SCH (23:45)
[2021-12-12] MEDS ORDERED: IBUPROFEN 400 MG TAB ONE (01:29)
[2021-12-12] MEDS ORDERED: HYDROCODONE/APAP 7.5/325 MG TAB ONE (01:30)
[2021-12-12] MEDS ORDERED: LIDOCAINE 1% W/EPI 1:100,000 MDV 50 ML VIAL ONE (01:31)
[2021-12-12] MEDS: NA CHLORIDE 0.9% 1,000 ML IV SCH (10:18)
[2021-12-16 20:55] VITALS: BP 113/84; TEMP 97.6
--- NOTE | 2021-12-16 20:55 | P.DS ---
Discharge Date: 12/12/21 Disposition: HOSPICE-MEDICAL FACILITY Discharge Condition: CRITICAL Reason for Admission: palliative care placement - Problems (1) PAD (peripheral artery disease) Status: Acute (2) Atrial fibrillation Onset Date: 08/17/16 Status: Chronic Qualifiers: (3) Dementia Status: Chronic Qualifiers: Brief History of Present Illness: patient is an 81-year-old female with advanced dementia who presents to the hospital with sinuses of the leg. She also has swelling of the lower extremity. She recently recovered from COVID - 19 pneumonia. However, she has become very debilitated. She is not eating or drinking. The assisted sent her to the emergency room with acute renal failure. She was severely dehydrated. She also has peripheral arterial disease. She has cyanosis of the leg. She also has a DVT. Patient's who is her medical power of deputy prosecuting attorney states that the patient has a do not attempt resuscitation in her living well and she does not want any heroic measures. He does not want her to get transferred for surgery. He is requesting hospice care. Patient will be a DNAR and we will set her up for inpatient hospice. Hospital Course: patient was discharged to hospice care back to the assisted. Vital Signs/Physical Exam: Temp Pulse Resp BP Pulse Ox 97.6 F 96 H 15 113/84 99 12/16/21 20:54 12/16/21 20:54 12/16/21 20:54 12/16/21 20:54 12/16/21 20:54 General: Unresponsive Laboratory Data at Discharge: WBC 20.8 K/uL (4.3-10.9) H* D 12/11/21 12:53 Hgb 13.8 g/dL (12.0-15.0) 12/11/21 12:53 Hct 42.8 % (36.0-45.0) 12/11/21 12:53 Plt Count 297 K/uL (152-406) D 12/11/21 12:53 PT 12.4 SECONDS (9.5-12.5) 12/11/21 12:53 INR 1.12 12/11/21 12:53 APTT Cancelled 12/12/21 12:00 Sodium 145 mmol/L (136-145) 12/11/21 12:53 Potassium 5.0 mmol/L (3.5-5.1) 12/11/21 12:53 BUN 73 mg/dL (7-18) H D 12/11/21 12:53 Creatinine 5.31 mg/dL (0.55-1.3) H* D 12/11/21 12:53 Glucose 119 mg/dL (74-106) H 12/11/21 12:53 Total Bilirubin 0.4 mg/dL (0.2-1.0) 12/11/21 12:53 AST 64 U/L (15-37) H 12/11/21 12:53 ALT 44 U/L (12-78) 12/11/21 12:53 Alkaline Phosphatase 120 U/L (45-117) H 12/11/21 12:53 Home Medications: Alendronate Sodium 70 mg PO EVERY 7TH DAY 04/12/20 Ferrous Sulfate [Ferrous Sulfate*] 325 mg PO SEECOM 04/12/20 Mesalamine [Delzicol] 800 mg PO TID 04/12/20 Multivitamin 1 tab PO DAILY 04/12/20 predniSONE [Prednisone*] 10 mg PO DAILY 04/12/20 Acetaminophen [Tylenol] 650 mg PO Q4HP PRN 12/12/21 Ascorbic Acid [Vitamin C] 500 mg PO BID 12/12/21 Calcium Carbonate/Vitamin D3 [Calcium 600-Vit D3 200 Tablet] 1 each PO BID 12/12/21 Cholecalciferol (Vitamin D3) [Vitamin D3] 2,000 unit PO DAILY 12/12/21 LORazepam [Ativan] 1 mg PO Q4HP PRN #20 tab 12/12/21 Lactobacillus Acidophilus [Acidophilus] 1 each PO DAILY 12/12/21 Latanoprost/Pf [Latanoprost 0.005% Eye Drop] 1 drop OP BEDTIME 12/12/21 Loperamide HCl [Imodium A-D] 2 mg PO Q4HP PRN 12/12/21 Morphine Oral Syrup [Morphine Oral Syrup*] 5 ml PO Q4HP PRN #100 ml 12/12/21 Promethazine HCl [Promethegan] 25 mg RC Q6HP PRN 12/12/21 Zinc Sulfate [Zinc Sulfate*] 220 mg PO DAILY 12/12/21 guaiFENesin [Kirsten-Tussin] 10 ml PO Q4HP PRN 12/12/21 New Medications: LORazepam [Ativan] 1 mg PO Q4HP PRN #20 tab PRN Reason: Agitation Morphine Oral Syrup [Morphine Oral Syrup*] 5 ml PO Q4HP PRN #100 ml PRN Reason: Pain Scale 5-7 (Moderate) Physician Discharge Instructions: -DC IV and DC to the assisted under hospice care once accepted Diet: Comfort fo Activity: Fall precautions Followup: NONE,NONE [Primary Care Provider] - Time spent managing pt's care (in minutes): 35
--- OUTSIDE RECORDS SUMMARY | 2021-12-20 23:43 | XMS REPORT | Continuity of Care Document ---
:1940 Author Organization [facility] t Address [address] [place] [address] Care Team Providers Name Role Phone Ivon Primary Care Physician Doctor Unassigned, Name Attending Clinician Unavailable Kevin VAZQUEZ Attending Clinician Unavailable 1, Infusion Chair Attending Clinician Unavailable Kevin Vazquez MD Attending Clinician Kevin RAMIREZ Attending Clinician Unavailable 1, Infusion Nurse Attending Clinician Unavailable Payers Payer Name Policy Type Policy Number Effective Date Expiration Date [facility] [id number] 2018 MEDICAID 00:00:00 Problems Condition Condition Condition Status Onset Resolution Last Treating Co mments Source Name Details Category Date Date Treatment Clinician Date No known No known Disease Unive rs active active ity of problems problems [facility] Allergies, Adverse Reactions, Alerts Allergy Allergy Status Severity Reaction(s) Onset Inactive Treating Comm ents Source Name Type Date Date Clinician NO KNOWN Drug Active Univers ALLERGIE Class ity of S [facility] Social History Social Habit Start Date Stop Date Quantity Comments Source Exposure to Not sure [facility] SARS-CoV-2 (event) Medica l Branch Sex Assigned At [birth year] [facility] 00:00:00 00:00:00 [facility] Smoking Status Start Date Stop Date Source Unknown if ever smoked [facility] Medications Ordered Filled Start Stop Current Ordering Indication Dosage Frequency Signature Comments Components Source Medication Medication Date Date Medication? Clinician (SIG) Name Name No known No Univers medications 4-20 ity of 11:44: [address] vedolizumab 2019- 2020- No 300mg Univ ers (ENTYVIO) 2-29 12-29 ity of 300 mg in 17:00: 18:09 [place] NaCl 0.9% 00 :00 Medical (NS) 250 mL Branch IV infusion vedolizumab 2019-06 2020- No 300mg 300 mg, IV Univers (ENTYVIO) 05-31 Infusion, ity of 300 mg in 17:00: 18:09 [place] 0.9% 00 :00 dose, Tue Medic al (NS) 250 mL 05/31/20 [facility] IV infusion at 1100, 250 mL vedolizumab 2019-06 2020- No 300mg Univ ers (ENTYVIO) 06-05 ity of 300 mg in 16:23: 17:46 [place] NaCl 0.9% 00 :00 Medical (NS) 250 mL Branch IV infusion vedolizumab 2019-06 2020- No 300mg 300 mg, IV Univers (ENTYVIO) 06-05 Infusion, ity of 300 mg in 16:23: 17:46 [place] 0.9% 00 :00 dose, Tue Medic al (NS) 250 mL 04/05/20 at [facility] IV infusion 1030, 250 mL vedolizumab 2019- 2020- No 300mg Univ ers (ENTYVIO) 02-08 ity of 300 mg in 16:00: 16:57 [place] NaCl 0.9% 00 :00 Medical (NS) 250 mL Branch IV infusion vedolizumab 0 2020- No 300mg 300 mg, IV Univers (ENTYVIO) 02-08 Infusion, ity of 300 mg in 16:00: 16:57 [place] 0.9% 00 :00 dose, Tue Medic al (NS) 250 mL 02/09/20 at [facility] IV infusion 1100, 250 mL Vital Signs Vital Name Observation Time Observation Value Comments Source Systolic blood 2020-05-31 18:15:00 143 mm[Hg] Univer sity of pressure [facility] Diastolic blood 2020-05-31 18:15:00 84 mm[Hg] Unive rsity of pressure [facility] Heart rate 2020-05-31 18:15:00 89 /min Universi ty of [facility] Oxygen saturation in 2020-05-31 18:15:00 97 /min University of Arterial blood by [facility] Pulse oximetry Branch Body temperature 2020-05-31 16:42:00 35.94 Bettye [facility] Body weight 2020-05-31 16:42:00 69.491 kg [facility] BMI 2020-05-31 16:42:00 23.99 kg/m2 [facility] Systolic blood 2020-04-05 16:21:00 118 mm[Hg] Univer sity of [facility] Diastolic blood 2020-04-05 16:21:00 80 mm[Hg] Unive rsity of [facility] Heart rate 2020-04-05 16:21:00 97 /min [facility] Body temperature 2020-04-05 16:21:00 36.39 Bettye [facility] Respiratory rate 2020-04-05 16:21:00 20 /min Univ ersity of [facility] Body height 2020-04-05 16:21:00 170.2 cm [facility] [place] Body weight 2020-04-05 16:21:00 68.493 kg [facility] BMI 2020-04-05 16:21:00 23.65 kg/m2 [facility] Oxygen saturation in 2020-04-05 16:21:00 97 /min University of Arterial blood by [facility] Pulse oximetry Branch Systolic blood 2020-02-09 15:35:00 105 mm[Hg] Univer sity [facility] Diastolic blood 2020-02-09 15:35:00 72 mm[Hg] Unive rsity of pressure [facility] Branch Heart rate 2020-02-09 15:35:00 78 /min [facility] Body temperature 2020-02-09 15:35:00 36.94 Bettye Univ ersity of [facility] Branch Respiratory rate 2020-02-09 15:35:00 18 /min [facility] Body height 2020-02-09 15:35:00 170.2 cm [facility] Body weight 2020-02-09 15:35:00 67.767 kg [facility] BMI 2020-02-09 15:35:00 23.40 kg/m2 Universi ty of [facility] Branch Oxygen saturation in 2020-02-09 15:35:00 96 /min University Arterial blood by [facility] Pulse oximetry Branch Procedures Procedure Date / Time Performing Clinician Source Performed AUTHORIZATION FOR 2021-09-13 05:01:00 Doctor Carole, Lauren [facility] RELEASE OF PHI Name [facility] Branch COMP. METABOLIC PANEL 2020-05-31 16:58:00 Pavithra Vazquez [facility] ([id number]) [facility] CBC WITH DIFF 2020-05-31 16:58:00 Pavithra Vazquez [facility] acute hospital CBC WITH DIFF 2020-02-09 16:08:00 Pavithra Vazquez General acute hospital Encounters Start End Encounter Admission Attending Care Care Encounter Source Date/Time Date/Time Type Type Clinicians Facility Department ID 2021-09-13 2021-09-13 Orders Doctor RYAN 1.2.840.114 [id number] Univers 00:00:00 00:00:00 Only Unassigned, GARY [id number] [facility]y of [place] [facility] 4.2.7.2.686 [place] [id number] [place] [address] Branch 2020-09-20 2020-09-20 Outpatient R [facility] [id number] Univers 11:00:00 11:00:00 [id number] ity of [facility] 2020-09-20 2020-09-20 [id number] Univers 11:00:00 11:00:00 ity of [facility] 2020-07-26 2020-07-26 Outpatient R [facility] [id number] Univers 11:00:00 11:00:00 [id number] ity of [facility] 2020-07-26 2020-07-26 [facility] [id number] Univers 11:00:00 11:00:00 ity [facility] 2020-05-31 2020-05-31 Nurse 1, Adc Infusion Chair [facility] 1.2. 840.114 [id number] Univers 10:33:27 12:58:54 Visit Pavithra Vazquez [id number] ity [facility] [place] [id number] Med ical [facility] [address] [place] [address] 2020-05-31 2020-05-31 Outpatient R [facility] [id number] Univers 10:30:00 10:30:00 [id number] ity of [facility] 2020-05-31 2020-05-31 Outpatient R PAVITHRA VAZQUEZ [facility] [id number] Univers 10:30:00 10:30:00 ity of [facility] 2020-04-22 2020-04-22 Outpatient R JAMES [facility] [id number] Univers 09:00:00 09:00:00 DURGA ity of [facility] 2020-04-22 2020-04-22 Outpatient R JAMES [facility] [id number] Univers 09:00:00 09:00:00 DURGA ity [facility] 2020-04-05 2020-04-05 Nurse 1, Adc Infusion Chair [facility] 1.2. 840.114 [id number] Univers 10:08:45 10:38:45 Visit Ann Vazquezjose Jimenez [id number] [facility] [place] [id number] Med ical Center [address] [place] [address] 2020-04-05 2020-04-05 Outpatient [facility] [id number] Univers 10:30:00 10:30:00 ity [facility] 2020-04-05 2020-04-05 Outpatient R PAVITHRA VAZQUEZ [facility] [id number] Univers 10:30:00 10:30:00 ity of [facility] 2020-02-26 2020-02-26 Outpatient R JAMES [facility] [id number] Univers 09:00:00 09:00:00 DURGA [id number] ity of [facility] 2020-02-26 2020-02-26 Outpatient R JAMES [facility] [id number] Univers 09:00:00 09:00:00 DURGA ity [facility] 2020-02-09 2020-02-09 Nurse 1, Adc Infusion Chair [facility] 1.2. 840.114 [id number] Univers 10:33:02 11:33:02 Visit Pavithra Vazquez [place] [facility]1.13.10 [facility] [place] [id number] [address] 2020-02-09 2020-02-09 Outpatient R [facility] [id number] Univers 10:30:00 10:30:00 [id number] ity [facility] 2020-02-09 2020-02-09 Outpatient R PAVITHRA VAZQUEZ [facility] [id number] Univers 10:30:00 10:30:00 ity [facility] 2020-02-03 2020-02-03 Orders Doctor SHELBY 1.2.840.114 [id number] 00:00:00 00:00:00 Only Unassigned, GARY 350.1.13.10 [place] [facility] 4.2.7.2.686 [id number] 2020-01-01 2020-01-01 [facility] [id number] Univers 09:00:00 09:00:00 [id number] 2020-01-01 Outpatient R RAMIREZ, [facility] [id number] Univers 09:00:00 09:00:00 [facility] 2019-07-17 2019-07-17 Nurse 1, Adc Infusion Chair [facility] 1.2. 840.114 [id number] 08:56:49 09:26:49 Visit 1, Adc Infusion Nurse [place] 350.1.1 3.10 [place] 4.2.7.2.686 Surgical [id number] [place] [address] 2019-07-17 2019-07-17 Outpatient R RAMIREZ, [facility] [id number] Univers 09:00:00 09:00:00 [facility] 2019-07-17 2019-07-17 Orders Doctor RYAN 1.2.840.114 [id number] 00:00:00 00:00:00 Only Unassigned, GARY 350.1.13.10 [place] [facility] 4.2.7.2.686 [id number] 2019-05-22 2019-05-22 Outpatient R RAMIREZ, [facility] [id number] Univers 09:00:00 09:00:00 [facility] 2019-03-31 2019-03-31 Outpatient Justyn RAMIREZ [facility] [id number] Univers 09:00:00 09:00:00 [facility] 2019-02-03 2019-02-03 Nurse 1, Adc Infusion Chair [facility] 1.2. 840.114 [id number] 08:52:52 10:22:52 Visit 1, Adc Infusion Nurse [place] 350.1.1 3.10 [place] 4.2.7.2.686 Surgical [id number] [place] [address] 2019-02-03 2019-02-03 Orders Doctor SHELBY 1.2.840.114 [id number] 00:00:00 00:00:00 Only Unassigned, GARY 350.1.13.10 [place] [facility] 4.2.7.2.686 [id number] 2019-01-07 2019-01-07 Nurse 1, Adc Infusion Chair [facility] 1.2. 840.114 [id number] 09:09:00 10:09:00 Visit 1, Adc Infusion Nurse Barbara 350.1.1 3.10 [place] 4.2.7.2.686 Surgical [id number] [place] [address] 2019-01-07 2019-01-07 Orders Doctor SHELBY 1.2.840.114 [id number] 00:00:00 00:00:00 Only Unassigned, GARY 350.1.13.10 [place] [facility] 4.2.7.2.686 [id number] 2018-12-23 2018-12-23 Outpatient Justyn RAMIREZ [facility] [id number] Univers 09:00:00 09:00:00 [facility] Results Test Description Test Time Test Comments Results Result Comments Source COMP. METABOLIC PANEL (79197) 2020-05-31 17:42:00 Test Item Value Reference Range Interpretation Comme nts NA (test code = 3949819396) 141 mmol/L 135-145 K (test code = 5128522108) 4.4 mmol/L 3.5-5.0 CL (test code = 0567186796) 107 mmol/L 98-108 CO2 TOTAL (test code = 0643918109) 26 mmol/L 23-31 AGAP (test code = 3307570683) 2-16 BUN (test code = 3975817852) 24 mg/dL 7-23 H GLUCOSE (test code = 9832968683) 71 mg/dL 70-110 CREATININE (test code = 0.84 mg/dL 0.50-1.04 6722899104) TOTAL BILI (test code = 0.7 mg/dL 0.1-1.4 2280435993) CALCIUM (test code = 4447344234) 9.8 mg/dL 8.6-10.6 T PROTEIN (test code = 2430703181) 7.7 g/dL 6.3-8.2 ALBUMIN (test code = 1436708277) 4.2 g/dL 3.5-5.0 ALK PHOS (test code = 9632759252) 88 U/L 34-122 ALTv (test code = 1742-6) 13 U/L 5-35 AST(SGOT) (test code = 0179726193) 34 U/L 13-40 eGFR (test code = 7550969447) mL/min/1.73m2 eGFR Calculation ( mL/min/1.73m2 Mal[place]) (test code = 4835388569) JAZZMINE (test code = JAZZMINE) Association of Glomerular Filtration Rate (GFR) and Staging of Kidney Disease* + +-------- + ------+| GFR (mL/min/1.73 m2) ?| With Kidney Damage ?| ?Without Kidney Damage+ +-- + +| ?>90 ?| ?Stage one ?| ? Normal ?+ +------- + -------+| ?60-89 ?| ?Stage two ?| ? Decreased GFR ? + +-------- + ------+| ?30-59 ?| ?Stage three ?| ? Stage three ? + +-------- + ------+| ?15-29 ?| ?Stage four ? | ? Stage four ?+ +------- + -------+| ?<15 (or dialysis) ? ?| ?Stage five ? | ? Stage five ?+ +------- + -------+ *Each stage assumes the associated GFR level has been in effect for at least three months. ?Stages 1 to 5, with or without kidney disease, indicate chronic kidney disease. Notes: Determination of stages one and two (with eGFR >59mL/min/1.73 m2) requires estimation of kidney damage for at least three months as defined by structural or functional abnormalities of the kidney, manifested by either:Pathological abnormalities or Markers of kidney damage (including abnormalities in the composition of the blood or urine or abnormalities in imaging tests). Lab Interpretation (test code = Abnormal 86457-0) [facility] WITH [id number] 17:18:00 Test Item Value Reference Range Interpretation Comments WBC (test code = See_Comment H [Automated 6690-2) message] The sy stem which generated this result transmitted reference range : 4.30 - 11.10 10*3/?L. The reference range was not used to interpret this result as normal/abnormal . RBC (test code = See_Comment [Automated 789-8) message] The sy stem which generated this result transmitted reference range : 3.93 - 5.25 10*6/?L. The reference range was not used to interpret this result as normal/abnormal . HGB (test code = 12.2 g/dL 11.6-15.0 718-7) HCT (test code = 39.9 % 35.7-45.2 4544-3) MCV (test code = 92.8 fL 80.6-95.5 787-2) MCH (test code = 28.4 pg 25.9-32.8 785-6) MCHC (test code = 30.6 g/dL 31.6-35.1 L 786-4) RDW-SD (test code = 47.5 fL 39.0-49.9 55552-3) RDW-CV (test code = 14.1 % 12.0-15.5 788-0) PLT (test code = See_Comment H [Automated 777-3) message] The sy stem which generated this result transmitted reference range : 166 - 358 10*3/ ?L. The reference r merna was not used to interpret this result as normal/abnormal . MPV (test code = 10.9 fL 9.5-12.9 30442-5) NRBC/100 WBC (test See_Comment [Automat ed code = 5302337096) message] The system which generated this result transmitted reference range : 0.0 - 10.0 /100 WBCs. The refer ence range was not u sed to interpret th is result as normal/abnormal . NRBC x10^3 (test code <0.01 See_Comment [Auto mated = 4147572860) message] The s ystem which generated this result transmitted reference range : 10*3/?L. The reference range was not used to interpret this result as normal/abnormal . GRAN MAT (NEUT) % 83.2 % (test code = 770-8) IMM GRAN % (test code 0.50 % = 6538948033) LYMPH % (test code = 8.1 % 736-9) MONO % (test code = 5.9 % 5905-5) EOS % (test code = 1.9 % 713-8) BASO % (test code = 0.4 % 706-2) GRAN MAT x10^3(ANC) 9.31 10*3/uL 1.88-7.09 H (test code = 6810640683) IMM GRAN x10^3 (test 0.06 10*3/uL 0.00-0.06 code = 2646269389) LYMPH x10^3 (test code 0.91 10*3/uL 1.32-3.29 L = 731-0) MONO x10^3 (test code 0.66 10*3/uL 0.33-0.92 = 742-7) EOS x10^3 (test code = 0.21 10*3/uL 0.03-0.39 711-2) BASO x10^3 (test code 0.04 10*3/uL 0.01-0.07 = 704-7) Lab Interpretation Abnormal (test code = 47914-4) [facility] WITH [id number] 18:01:00 Test Item Value Reference Range Interpretation Comments WBC (test code = See_Comment H [Automated 5290-2) message] The system which generated this result transmit poornima reference range : 4.30 - 11.10 10*3/?L. The reference range was not used to interpret this result as normal/abnormal . RBC (test code = See_Comment L [Automated 789-8) message] The system which generated this result transmit poornima reference range : 3.93 - 5.25 10*6/?L. The reference range was not used to interpret this result as normal/abnormal . HGB (test code = 11.4 g/dL 11.6-15.0 L 718-7) HCT (test code = 35.4 % 35.7-45.2 L 4544-3) MCV (test code = 94.1 fL 80.6-95.5 787-2) MCH (test code = 30.3 pg 25.9-32.8 785-6) MCHC (test code = 32.2 g/dL 31.6-35.1 786-4) RDW-SD (test code = 47.8 fL 39.0-49.9 06940-6) RDW-CV (test code = 14.2 % 12.0-15.5 788-0) PLT (test code = See_Comment H [Automated 777-3) message] The system which generated this result transmit poornima reference range : 166 - 358 10*3/ ?L. The reference range was not u sed to interpret th is result as normal/abnormal . MPV (test code = 9.8 fL 9.5-12.9 57096-8) NRBC/100 WBC (test See_Comment [Automat ed code = 6071289406) message] The system which generated this result transmit poornima reference range : 0.0 - 10.0 /100 WBCs. The reference range was not used to interpret this result as normal/abnormal . NRBC x10^3 (test code <0.01 See_Comment [Auto mated = 0898432045) message] The system which generated this result transmit poornima reference range : 10*3/?L. The reference range was not used to interpret this result as normal/abnormal . GRAN MAT (NEUT) % 89.6 % (test code = 770-8) IMM GRAN % (test code 0.70 % = 1480781805) LYMPH % (test code = 3.7 % 736-9) MONO % (test code = 5.4 % 5905-5) EOS % (test code = 0.4 % 713-8) BASO % (test code = 0.2 % 706-2) GRAN MAT x10^3(ANC) 15.25 10*3/uL 1.88-7.09 H (test code = 6019856620) IMM GRAN x10^3 (test 0.12 10*3/uL 0.00-0.06 H code = 9160815612) LYMPH x10^3 (test code 0.63 10*3/uL 1.32-3.29 L = 731-0) MONO x10^3 (test code 0.92 10*3/uL 0.33-0.92 = 742-7) EOS x10^3 (test code = 0.07 10*3/uL 0.03-0.39 711-2) BASO x10^3 (test code 0.04 10*3/uL 0.01-0.07 = 704-7) BANDS (test code = Increased A 8100667312) Lab Interpretation Abnormal (test code = 35101-9) [facility]"
== END 2021-12-12 16:25 | disposition hospice, inpatient (51) ==
LOC: ER 12:17 → ERHOLD 15:34 → 4TH 12-12 08:09
PROVIDERS: ADMIT Hospitalist; ATTEND Hospitalist
DX: N17.9 Acute kidney failure, unspecified (principal); E86.0 Dehydration; U07.1 COVID-19; Z66 Do not resuscitate; I73.9 Peripheral vascular disease, unspecified; I82.4Z2 Acute embolism and thrombosis of unspecified deep veins of left distal lower extremity; F03.90 Unspecified dementia, unspecified severity, without behavioral disturbance, psychotic disturbance, mood disturbance, and anxiety; I77.1 Stricture of artery; I48.91 Unspecified atrial fibrillation; K51.90 Ulcerative colitis, unspecified, without complications; K21.9 Gastro-esophageal reflux disease without esophagitis; M81.0 Age-related osteoporosis without current pathological fracture; D50.9 Iron deficiency anemia, unspecified; M19.90 Unspecified osteoarthritis, unspecified site; R53.81 Other malaise; Z88.8 Allergy status to other drugs, medicaments and biological substances; Z82.49 Family history of ischemic heart disease and other diseases of the circulatory system
CPT/HCPCS: 96365; 96361; 87040 ×2; 85025; 36415; 85610; 82947; 83605 ×2; 85730 ×3; 80053; 71045; 93925; 93970; 99285; U0003; J1644 ×2; J7030 ×4; G0378 ×3